=== PATIENT | female | born 1995 | race Hispanic/Latino ===

== ENCOUNTER 2017-10-23 21:36 | Emergency (ER) | payer OTHER, SELFPAY ==
[2017-10-23] MEDS ORDERED: ACETAMINOPHEN 500 MG TAB ONE (23:02)
[2017-10-24] MEDS ORDERED: MAGNE/ALUM HYDROXD 30 ML UCUP ONE (00:15)
[2017-10-24] MEDS ORDERED: LIDOCAINE VISCOUS 2% SOLN 15 ML UDC ONE (00:15)
--- NOTE | 2017-10-24 00:21 | ER ---
Nurse's Notes [facility] Name: Parris Del Rio Age: 22 yrs Sex: Female : 1995 Arrival Date: 10/23/2017 Time: 21:38 Bed 27 Private MD: Diagnosis: Gastritis, unspecified;Anxiety disorder, unspecified Presentation: 10/23 21:38 Presenting complaint: Patient states: She dyed her hair an hour ago, and the fumes aj1 started to get to her and make her feel short of breath. She takes Ativan for anxiety, but didn't have any with her, so her sister gave her some alprazolam, but it didn't help. She began vomiting shortly after that, and began to have chest pain so she became concerned that she was having an allergic reation to the hair dye. Patient denies rash, itching. Transition of care: patient was not received from another setting of care. Onset of symptoms was October 23, 2017 at 20:30. Risk Assessment: Do you want to hurt yourself or someone else? Patient reports no desire to harm self or others. Initial Sepsis Screen: Does the patient meet any 2 criteria? HR > 90 bpm. No. Patient's initial sepsis screen is negative. Does the patient have a suspected source of infection? No. Patient's initial sepsis screen is negative. Care prior to arrival: None. 21:38 Method Of Arrival: Ambulatory aj1 21:38 Acuity: JOY 3 aj1 Triage Assessment: 21:41 General: Appears uncomfortable, Behavior is anxious, restless. Pain: Complains of pain aj1 in mid-sternal area Pain does not radiate. Pain currently is 8 out of 10 on a pain scale. Quality of pain is described as pressure. Neuro: Level of Consciousness is awake, alert, obeys commands, Speech is normal. Cardiovascular: Reports chest pain, Patient's skin is warm and dry. Respiratory: Airway is patent Respiratory effort is even, unlabored, Respiratory pattern is symmetrical, hyperventilation Patient coached with deep breathing techniques. 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 - Social history:: Smoking status: Patient uses tobacco products, smokes one-half pack cigarettes per day. - Ebola Screening: : Patient denies travel to an Ebola-affected area in the 21 days before illness onset. Screenin:50 Abuse screen: Denies threats or abuse. Nutritional screening: No deficits noted. tl3 Tuberculosis screening: No symptoms or risk factors identified. Fall Risk None identified. Assessment: 21:50 General: Appears distressed, uncomfortable, well groomed, well developed, well tl3 nourished, Behavior is cooperative, appropriate for age, anxious. Pain: Complains of pain in chest and mid-sternal area. Neuro: Level of Consciousness is awake, alert, obeys commands, Oriented to person, place, time, situation, Appropriate for age. Cardiovascular: Heart tones S1 S2 present Patient's skin is warm and dry. Respiratory: Airway is patent Respiratory effort is even, unlabored, Respiratory pattern is regular, symmetrical. Respiratory: Reports shortness of breath since dying her hair this evening, fumes were strong, pt suffers with anxiety and had an attack earlier today. GI: No signs and/or symptoms were reported involving the gastrointestinal system. : No signs and/or symptoms were reported regarding the genitourinary system. EENT: No signs and/or symptoms were reported regarding the EENT system. Derm: No signs and/or symptoms reported regarding the dermatologic system. Musculoskeletal: No signs and/or symptoms reported regarding the musculoskeletal system. 22:56 Reassessment: Patient appears in no apparent distress at this time. No changes from tl3 previously documented assessment. Patient and/or family updated on plan of care and expected duration. Pain level reassessed. Patient is alert, oriented x 3, equal unlabored respirations, skin warm/dry/pink. pt reports headache, provider notified, orders recieved. 23:50 Reassessment: Patient appears in no apparent distress at this time. No changes from tl3 previously documented assessment. Patient and/or family updated on plan of care and expected duration. Pain level reassessed. Patient is alert, oriented x 3, equal unlabored respirations, skin warm/dry/pink. 10/24 00:25 Reassessment: Patient appears in no apparent distress at this time. No changes from tl3 previously documented assessment. Patient and/or family updated on plan of care and expected duration. Pain level reassessed. Patient is alert, oriented x 3, equal unlabored respirations, skin warm/dry/pink. Patient states feeling better. Vital Signs: 10/23 21:41 BP 146 / 101; Pulse 99; Resp 24; Temp 98.0(O); Pulse Ox 100% on R/A; Weight 68.04 kg aj1 (R); Height 5 ft. 3 in. (160.02 cm) (R); Pain 8/10; 22:56 BP 114 / 68; Pulse 90; Resp 18; Pulse Ox 100% on R/A; tl3 23:50 BP 106 / 85; Pulse 83; Resp 18; Pulse Ox 100% ; tl3 10/24 00:25 BP 108 / 87; Pulse 80; Resp 18; Pulse Ox 99% on R/A; tl3 10/23 21:41 Body Mass Index 26.57 (68.04 kg, 160.02 cm) aj1 ED Course: 10/23 21:38 Patient arrived in ED. aj1 21:41 Triage completed. aj1 21:41 Arm band placed on Patient placed in an exam room. aj1 21:43 Brenda Nicholson, NANCI is Primary Nurse. tl3 21:45 Craig Ellison PA is PHCP. jr8 21:45 Quintin Reyes MD is Attending Physician. jr8 21:50 Patient has correct armband on for positive identification. Bed in low position. Call tl3 light in reach. Side rails up X2. Pulse ox on. NIBP on. 21:50 No provider procedures requiring assistance completed. Patient did not have IV access tl3 during this emergency room visit. 10/24 00:11 XRAY Chest (1 view) In Process Unspecified. EDMS Administered Medications: 10/23 22:58 Drug: Tylenol 1000 mg Route: PO; tl3 23:49 Follow up: Response: No adverse reaction; Pain is decreased tl3 23:49 Drug: Ativan 1 mg Route: IM; Site: right gluteus; tl3 10/24 00:27 Follow up: Response: No adverse reaction tl3 10/23 23:49 Drug: GI Cocktail without - (Maalox Suspension 30 ml, Lidocaine Liquid 2 % 15 tl3 ml) Route: PO; 10/24 00:26 Follow up: Response: No adverse reaction; Marked relief of symptoms tl3 10/23 23:56 Not Given (Physician Discretion): TORadol 60 mg IM once jr8 Outcome: 10/24 00:21 Discharge ordered by . jr8 00:25 Discharged to home ambulatory. tl3 00:25 Condition: stable 00:25 Discharge instructions given to patient, Instructed on discharge instructions, follow up and referral plans. medication usage, Demonstrated understanding of instructions, follow-up care. 00:43 Patient left the ED. tl3 Signatures: Dispatcher [employer] EDMS Tg Barry RN RN aj1 Craig Ellison PA PA jr8 Brenda Nicholson RN RN tl3
--- NOTE | 2017-10-24 00:22 | EDPHYS ---
Physician Documentation [facility] Name: Parris Del Rio Age: 22 yrs Sex: Female : 1995 Arrival Date: 10/23/2017 Time: 21:38 Bed 27 Private MD: ED Physician Quintin Reyes HPI: 10/23 23:19 This 22 yrs old Female presents to ER via Ambulatory with complaints of jr8 anxiety/chest pain. 23:19 The patient or guardian reports chest pain that is located primarily in the substernal jr8 area. The pain does not radiate. Associated signs and symptoms: The patient has no apparent associated signs or symptoms. The chest pain is described as sharp. Duration: The patient or guardian reports a single episode, that is still ongoing. Modifying factors: The symptoms are alleviated by nothing. the symptoms are aggravated by emotionally stressful situations. Severity of pain: At its worst the pain was moderate in the emergency department the pain has improved. The patient has experienced similar episodes in the past, several times. The patient has not recently seen a physician. Stated that she had bad panic attack earlier. Took a xanax from her sister since she did not have her ativan on hand. Stated that it helped with the anxiety but still having chest pain. Stated that she normally gets chest pain with her attacks but that it goes away with the anxiety . 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 - Social history:: Smoking status: Patient uses tobacco products, smokes one-half pack cigarettes per day. - Ebola Screening: : Patient denies travel to an Ebola-affected area in the 21 days before illness onset. ROS: 23:19 Eyes: Negative for injury, pain, redness, and discharge, ENT: Negative for injury, jr8 pain, and discharge, Neck: Negative for injury, pain, and swelling, Respiratory: Negative for shortness of breath, cough, wheezing, and pleuritic chest pain, Abdomen/GI: Negative for abdominal pain, nausea, vomiting, diarrhea, and constipation, Back: Negative for injury and pain, MS/Extremity: Negative for injury and deformity, Skin: Negative for injury, rash, and discoloration, Neuro: Negative for headache, weakness, numbness, tingling, and seizure. 23:19 Cardiovascular: Positive for chest pain, Negative for edema, orthopnea, palpitations, paroxysmal nocturnal dyspnea. 23:19 Psych: Positive for anxiety. Exam: 23:19 Eyes: Pupils equal round and reactive to light, extra-ocular motions intact. Lids and jr8 lashes normal. Conjunctiva and sclera are non-icteric and not injected. Cornea within normal limits. Periorbital areas with no swelling, redness, or edema. ENT: Nares patent. No nasal discharge, no septal abnormalities noted. Tympanic membranes are normal and external auditory canals are clear. Oropharynx with no redness, swelling, or masses, exudates, or evidence of obstruction, uvula midline. Mucous membranes moist. Neck: Trachea midline, no thyromegaly or masses palpated, and no cervical lymphadenopathy. Supple, full range of motion without nuchal rigidity, or vertebral point tenderness. No Meningismus. Chest/axilla: Normal chest wall appearance and motion. Nontender with no deformity. No lesions are appreciated. Cardiovascular: Regular rate and rhythm with a normal S1 and S2. No gallops, murmurs, or rubs. Normal PMI, no JVD. No pulse deficits. Respiratory: Lungs have equal breath sounds bilaterally, clear to auscultation and percussion. No rales, rhonchi or wheezes noted. No increased work of breathing, no retractions or nasal flaring. Abdomen/GI: Soft, non-tender, with normal bowel sounds. No distension or tympany. No guarding or rebound. No evidence of tenderness throughout. Back: No spinal tenderness. No costovertebral tenderness. Full range of motion. Skin: Warm, dry with normal turgor. Normal color with no rashes, no lesions, and no evidence of cellulitis. MS/ Extremity: Pulses equal, no cyanosis. Neurovascular intact. Full, normal range of motion. Neuro: Awake and alert, GCS 15, oriented to person, place, time, and situation. Cranial nerves II-XII grossly intact. Motor strength 5/5 in all extremities. Sensory grossly intact. Cerebellar exam normal. Normal gait. Psych: Awake, alert, with orientation to person, place and time. Behavior, mood, and affect are within normal limits. Vital Signs: 21:41 BP 146 / 101; Pulse 99; Resp 24; Temp 98.0(O); Pulse Ox 100% on R/A; Weight 68.04 kg aj1 (R); Height 5 ft. 3 in. (160.02 cm) (R); Pain 8/10; 22:56 BP 114 / 68; Pulse 90; Resp 18; Pulse Ox 100% on R/A; tl3 23:50 BP 106 / 85; Pulse 83; Resp 18; Pulse Ox 100% ; tl3 10/24 00:25 BP 108 / 87; Pulse 80; Resp 18; Pulse Ox 99% on R/A; tl3 10/23 21:41 Body Mass Index 26.57 (68.04 kg, 160.02 cm) aj1 MDM: 10/23 21:46 Patient medically screened. 8 10/24 00:20 Data reviewed: vital signs, nurses notes, lab test result(s), EKG, radiologic studies, 8 plain films, and as a result, I will discharge patient. Data interpreted: Pulse oximetry: on room air is 100 %. Interpretation: normal. Counseling: I had a detailed discussion with the patient and/or guardian regarding: the historical points, exam findings, and any diagnostic results supporting the discharge/admit diagnosis, lab results, radiology results, the need for outpatient follow up, a family practitioner, to return to the emergency department if symptoms worsen or persist or if there are any questions or concerns that arise at home. Response to treatment: the patient's symptoms have resolved after treatment. 10/23 23:18 Order name: XRAY Chest (1 view) [facility] 10/23 23:18 Order name: EKG - Nurse/Tech; Complete Time: 23:30 [facility] Administered Medications: 10/23 22:58 Drug: Tylenol 1000 mg Route: PO; tl3 23:49 Follow up: Response: No adverse reaction; Pain is decreased tl3 23:49 Drug: Ativan 1 mg Route: IM; Site: right gluteus; tl3 10/24 00:27 Follow up: Response: No adverse reaction 3 10/23 23:49 Drug: GI Cocktail without - (Maalox Suspension 30 ml, Lidocaine Liquid 2 % 15 tl3 ml) Route: PO; 10/24 00:26 Follow up: Response: No adverse reaction; Marked relief of symptoms tl3 10/23 23:56 Not Given (Physician Discretion): TORadol 60 mg IM once jr8 Disposition: 10/24 06:50 Co-signature as Attending Physician, Quintin Reyes MD I agree with the assessment and wali plan of care. Disposition: 10/24/17 00:21 Discharged to Home. Impression: Gastritis, unspecified, Anxiety disorder, unspecified. - Condition is Stable. - Discharge Instructions: Panic Attacks, Gastritis, Adult. - Medication Reconciliation Form, Thank You Letter, Antibiotic Education, Prescription Opioid Use form. - Follow up: Private Physician; When: 2 - 3 days; Reason: Recheck today's complaints, Continuance of care, Re-evaluation by your physician. - Problem is new. - Symptoms have improved. Signatures: Dispatcher [employer] EDMS Tg Barry RN RN aj1 Quintin Reyes MD MD cha Roszak, Josh, PA PA jr8 Brenda Nicholson RN RN tl3 Corrections: (The following items were deleted from the chart) 00:43 00:21 10/24/2017 00:21 Discharged to Home. Impression: Gastritis, unspecified; Anxiety tl3 disorder, unspecified. Condition is Stable. Forms are Medication Reconciliation Form, Thank You Letter, Antibiotic Education, Prescription Opioid Use. Follow up: Private Physician; When: 2 - 3 days; Reason: Recheck today's complaints, Continuance of care, Re-evaluation by your physician. Problem is new. Symptoms have improved. jr8
[2017-10-24] MEDS ORDERED: LORazepam 2 MG/ML VIAL ONE (00:37)
[2017-10-24 01:06] VITALS: TEMP 98
[2017-10-24 01:11] VITALS: BP 108/87; O2SAT 99
--- NOTE | 2017-10-24 07:52 | RAD REPORT ---
EXAM DESCRIPTION: Dylan Single View10/24/2017 12:12 am CLINICAL HISTORY: Shortness of breath COMPARISON: none FINDINGS: The lungs appear clear of acute infiltrate. The heart is normal size IMPRESSION: No acute abnormalities displayed
--- NOTE | 2017-10-24 11:06 | EKG ---
Test Date: 2017-10-23 Test Time: 23:38:18 [employer] Mdm Developer: TL MEASUREMENT RESULTS: Intervals: Rate: 73 VT: 162 QRSD: 88 QT: 410 QTc: 451 [place]: P: 43 VT: 162 QRS: 53 T: 48 INTERPRETIVE STATEMENTS: Normal sinus rhythm with sinus arrhythmia Normal ECG No previous ECG available for comparison Electronically Signed On 10-24-17 11:03:46 CDT by Silvestre Monroe
== END 2017-10-24 00:43 | disposition home or self-care (01) ==
LOC: ER 21:36
DX: K21.9 Gastro-esophageal reflux disease without esophagitis (principal); F41.9 Anxiety disorder, unspecified; F17.210 Nicotine dependence, cigarettes, uncomplicated
CPT/HCPCS: 71045; 93005; 96372; 99284

== ENCOUNTER 2017-10-26 21:10 | Emergency (ER) | payer SELFPAY ==
[2017-10-26 21:58] LABS: Absolute Lymphocytes (CBC) 2.5 K/uL (0.7-4.9); Absolute Monocytes 0.5 K/uL (0.1-1.3); Absolute Neutrophil 8.5 K/uL (1.8-8.0); Basophils % 0.4 % (0-1.3); Eosinophils % 1.1 % (0-4.4); Hematocrit 41.6 % (36.0-45.0); Lymphocytes % 21.3 % (15.3-44.8); MCV 85.5 fL (80-100); MPV 9.4 fL (7.6-11.3); RBC Red Blood Cell Count 4.86 M/uL (3.86-4.86)
[2017-10-26 22:16] LABS: BUN Blood Urea Nitrogen 18 mg/dL (7-18); Bicarbonate 23 mmol/L (21-32); Glucose Level 93 mg/dL (74-106); Potassium 3.3 mmol/L (3.5-5.1); Sodium Level 138 mmol/L (136-145); Troponin (Emerg Dept Use Only) < 0.02 ng/mL (0.0-0.045)
[2017-10-26] MEDS ORDERED: ONDANSETRON 4 MG/2 ML VIAL ONE (22:31)
[2017-10-26] MEDS ORDERED: KETOROLAC 30 MG/ML INJ ONE (22:31)
--- NOTE | 2017-10-26 23:06 | EDPHYS ---
Physician Documentation [facility] Name: Parris Del Rio Age: 22 yrs Sex: Female : 1995 Arrival Date: 10/26/2017 Time: 21:11 Bed 17 Private MD: ED Physician Jr Poole HPI: 10/26 23:02 This 22 yrs old Female presents to ER via Ambulatory with complaints of Chest gs Pain. 23:02 The patient or guardian reports chest pain that is located primarily in the anterior gs chest wall, bilaterally. The pain does not radiate. Associated signs and symptoms: Pertinent positives: shortness of breath. The chest pain is described as sharp. Duration: The patient or guardian reports multiple episodes, that are intermittent, that wax and wane, with no pattern. Modifying factors: The symptoms are alleviated by nothing. the symptoms are aggravated by nothing. Severity of pain: At its worst the pain was moderate in the emergency department the pain has improved mildly. The patient has experienced similar episodes in the past, a few times. 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 - Social history:: Smoking status: Patient/guardian denies using tobacco. - Ebola Screening: : Patient negative for fever greater than or equal to 101.5 degrees Fahrenheit, and additional compatible Ebola Virus Disease symptoms Patient denies exposure to infectious person Patient denies travel to an Ebola-affected area in the 21 days before illness onset No symptoms or risks identified at this time. ROS: 23:02 All other systems are negative. gs Exam: 23:02 Head/Face: Normocephalic, atraumatic. Eyes: Pupils equal round and reactive to light, gs extra-ocular motions intact. Lids and lashes normal. Conjunctiva and sclera are non-icteric and not injected. Cornea within normal limits. Periorbital areas with no swelling, redness, or edema. ENT: Nares patent. No nasal discharge, no septal abnormalities noted. Tympanic membranes are normal and external auditory canals are clear. Oropharynx with no redness, swelling, or masses, exudates, or evidence of obstruction, uvula midline. Mucous membranes moist. Neck: Trachea midline, no thyromegaly or masses palpated, and no cervical lymphadenopathy. Supple, full range of motion without nuchal rigidity, or vertebral point tenderness. No Meningismus. Chest/axilla: Normal chest wall appearance and motion. Nontender with no deformity. No lesions are appreciated. Respiratory: Lungs have equal breath sounds bilaterally, clear to auscultation and percussion. No rales, rhonchi or wheezes noted. No increased work of breathing, no retractions or nasal flaring. Abdomen/GI: Soft, non-tender, with normal bowel sounds. No distension or tympany. No guarding or rebound. No evidence of tenderness throughout. 23:02 Back: No spinal tenderness. No costovertebral tenderness. Full range of motion. Skin: Warm, dry with normal turgor. Normal color with no rashes, no lesions, and no evidence of cellulitis. MS/ Extremity: Pulses equal, no cyanosis. Neurovascular intact. Full, normal range of motion. Neuro: Awake and alert, GCS 15, oriented to person, place, time, and situation. Cranial nerves II-XII grossly intact. Motor strength 5/5 in all extremities. Sensory grossly intact. Cerebellar exam normal. Normal gait. 23:02 Constitutional: The patient appears alert, awake. 23:02 Constitutional: The patient appears anxious. 23:02 Cardiovascular: Rate: tachycardic, Rhythm: regular, Pulses: no pulse deficits are appreciated, Heart sounds: normal. 23:02 ECG was reviewed by the Attending Physician. Vital Signs: 21:17 BP 128 / 88; Pulse 121; Resp 24; Temp 98.0; Pulse Ox 100% on R/A; Weight 68.04 kg; aj Height 5 ft. 3 in. (160.02 cm); 21:37 BP 122 / 71; Pulse 95; Resp 22; Pulse Ox 100% on R/A; tl2 22:29 BP 106 / 74; Pulse 85; Resp 18; Pulse Ox 98% on R/A; tl2 23:35 BP 111 / 82; Pulse 72; Resp 18; Pulse Ox 99% on R/A; Pain 0/10; tl2 21:17 Body Mass Index 26.57 (68.04 kg, 160.02 cm) aj MDM: 21:53 Patient medically screened. 23:02 Differential diagnosis: acute myocardial infarction, pleurisy, pneumonia, pulmonary gs embolus. Data reviewed: vital signs, nurses notes. Response to treatment: the patient's symptoms have markedly improved after treatment, and as a result, I will discharge patient. 10/26 21:35 Order name: Basic Metabolic Panel; Complete Time: 22:22 10/26 21:35 Order name: CBC with Diff; Complete Time: 22:22 10/26 21:35 Order name: Troponin (emerg Dept Use Only); Complete Time: 22:22 10/26 21:35 Order name: XRAY Chest (1 view) 10/26 21:35 Order name: D-Dimer; Complete Time: 22:22 10/26 21:35 Order name: EKG; Complete Time: 21:35 10/26 21:35 Order name: Cardiac monitoring; Complete Time: 21:36 10/26 21:35 Order name: EKG - Nurse/Tech; Complete Time: 21:36 10/26 21:35 Order name: IV Saline Lock; Complete Time: 21:57 10/26 21:35 Order name: Labs collected and sent; Complete Time: 21:57 10/26 21:35 Order name: O2 Per Protocol; Complete Time: 21:37 10/26 21:35 Order name: O2 Sat Monitoring; Complete Time: 21:37 gs EC:02 Rate is 100 beats/min. Rhythm is regular. OH interval is normal. QRS interval is gs normal. QT interval is normal. T waves are Normal. No ST changes noted. Clinical impression: Abnormal EKG without significant change. Interpreted by me. Administered Medications: 22:28 Drug: TORadol 30 mg Route: IVP; Site: right antecubital; tl2 23:36 Follow up: Response: No adverse reaction; Pain is decreased tl2 22:29 Drug: Zofran 4 mg Route: IVP; Site: right antecubital; tl2 23:36 Follow up: Response: No adverse reaction; Nausea is decreased tl2 Disposition: 10/26/17 23:05 Discharged to Home. Impression: Chest pain, unspecified, Pleurodynia. - Condition is Stable. - Discharge Instructions: Nonspecific Chest Pain. - Prescriptions for Prednisone 20 mg Oral Tablet - take 1 tablet by ORAL route once daily for 5 days; 5 tablet. - Medication Reconciliation Form, Thank You Letter, Antibiotic Education, Prescription Opioid Use form. - Follow up: Private Physician; When: 2 - 3 days; Reason: Re-evaluation by your physician. Signatures: Dispatcher [employer] Loree Guerra RN RN Glenys Baltazar RN RN tl2 Jr Poole MD MD gs Corrections: (The following items were deleted from the chart) 23:37 23:05 10/26/2017 23:05 Discharged to Home. Impression: Chest pain, unspecified; tl2 Pleurodynia. Condition is Stable. Forms are Medication Reconciliation Form, Thank You Letter, Antibiotic Education, Prescription Opioid Use. Follow up: Private Physician; When: 2 - 3 days; Reason: Re-evaluation by your physician. gs
--- NOTE | 2017-10-26 23:06 | ER ---
Nurse's Notes [facility] Name: Parris Del Rio Age: 22 yrs Sex: Female : 1995 Arrival Date: 10/26/2017 Time: 21:11 Bed 17 Private MD: Diagnosis: Chest pain, unspecified;Pleurodynia Presentation: 10/26 21:15 Presenting complaint: Patient states: Chest pain for 4 days. Seen by physician for same aj complaint and DX with Anxiety. Reports symptoms do not resolve with Lorazepam. Patient is hyperventilating in triage and crying. Appears very anxious. Transition of care: patient was not received from another setting of care. Onset of symptoms was October 22, 2017. Risk Assessment: Do you want to hurt yourself or someone else? Patient reports no desire to harm self or others. Initial Sepsis Screen: Does the patient meet any 2 criteria? No. Patient's initial sepsis screen is negative. Does the patient have a suspected source of infection? No. Patient's initial sepsis screen is negative. Care prior to arrival: None. 21:15 Method Of Arrival: Ambulatory 21:15 Acuity: JOY 3 aj Triage Assessment: 21:17 General: Appears in no apparent distress. uncomfortable, Behavior is anxious, crying. aj Pain: Complains of pain in anterior aspect of right upper chest, anterior aspect of left upper chest, right breast and left breast. Neuro: Level of Consciousness is awake, alert, obeys commands, Oriented to person, place, time, situation, Appropriate for age. Cardiovascular: Capillary refill < 3 seconds in bilateral fingers Patient's skin is warm and dry. Respiratory: Airway is patent Respiratory effort is even, unlabored, Respiratory pattern is symmetrical, hyperventilation. Derm: Skin is intact, is healthy with good turgor, Skin is pink, warm \T\ dry. normal. 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 - Social history:: Smoking status: Patient/guardian denies using tobacco. - Ebola Screening: : Patient negative for fever greater than or equal to 101.5 degrees Fahrenheit, and additional compatible Ebola Virus Disease symptoms Patient denies exposure to infectious person Patient denies travel to an Ebola-affected area in the 21 days before illness onset No symptoms or risks identified at this time. Screenin:37 Abuse screen: Denies threats or abuse. Nutritional screening: No deficits noted. tl2 Tuberculosis screening: No symptoms or risk factors identified. Fall Risk None identified. Assessment: 21:38 General: Appears in no apparent distress. uncomfortable, Behavior is calm, cooperative, tl2 appropriate for age. Pain: Complains of pain in anterior aspect of left upper chest and anterior aspect of right upper chest Pain radiates to neck, jaw Pain began 4 days ago. Neuro: Level of Consciousness is awake, alert, obeys commands, Oriented to person, place, time, situation. Cardiovascular: Chest pain is described as diffuse, quality is sharp, is located in right left anterior radiates jaw(s) neck began 4 days ago episodes are continuous. Respiratory: Airway is patent Respiratory effort is even, unlabored, Respiratory pattern is regular, symmetrical. GI: No signs and/or symptoms were reported involving the gastrointestinal system. Derm: Skin is pink, warm \T\ dry. 22:31 Reassessment: Patient appears in no apparent distress at this time. Patient and/or tl2 family updated on plan of care and expected duration. Pain level reassessed. Patient is alert, oriented x 3, equal unlabored respirations, skin warm/dry/pink. pt c/o nausea, MD notified, see MAR. 23:35 Reassessment: Patient appears in no apparent distress at this time. Patient and/or tl2 family updated on plan of care and expected duration. Pain level reassessed. Patient is alert, oriented x 3, equal unlabored respirations, skin warm/dry/pink. Pt verbalized understanding of discharge instructions, need for follow up and prescription usage Patient states feeling better. Patient states symptoms have improved. Vital Signs: 21:17 BP 128 / 88; Pulse 121; Resp 24; Temp 98.0; Pulse Ox 100% on R/A; Weight 68.04 kg; aj Height 5 ft. 3 in. (160.02 cm); 21:37 BP 122 / 71; Pulse 95; Resp 22; Pulse Ox 100% on R/A; tl2 22:29 BP 106 / 74; Pulse 85; Resp 18; Pulse Ox 98% on R/A; tl2 23:35 BP 111 / 82; Pulse 72; Resp 18; Pulse Ox 99% on R/A; Pain 0/10; tl2 21:17 Body Mass Index 26.57 (68.04 kg, 160.02 cm) ED Course: 21:11 Patient arrived in ED. ds1 21:17 Triage completed. aj 21:17 Arm band placed on right wrist. Patient placed in an exam room. aj 21:31 Jr Poole MD is Attending Physician. gs 21:37 Patient has correct armband on for positive identification. Placed in gown. Bed in low tl2 position. Call light in reach. Side rails up X 1. cook barbecue on. Pulse ox on. NIBP on. 21:37 Patient maintains SpO2 saturation greater than 95% on room air. tl2 21:57 Inserted saline lock: 22 gauge in right antecubital area, using aseptic technique. tl2 Blood collected. 22:51 XRAY Chest (1 view) In Process Unspecified. EDMS 23:35 No provider procedures requiring assistance completed. IV discontinued, intact, tl2 bleeding controlled, No redness/swelling at site. Pressure dressing applied. Administered Medications: 22:28 Drug: TORadol 30 mg Route: IVP; Site: right antecubital; tl2 23:36 Follow up: Response: No adverse reaction; Pain is decreased tl2 22:29 Drug: Zofran 4 mg Route: IVP; Site: right antecubital; tl2 23:36 Follow up: Response: No adverse reaction; Nausea is decreased tl2 Outcome: 23:05 Discharge ordered by . gs 23:35 Discharged to home ambulatory. tl2 23:35 Condition: stable 23:35 Discharge instructions given to patient, Instructed on discharge instructions, follow up and referral plans. medication usage, Demonstrated understanding of instructions, follow-up care, medications, Prescriptions given X 1. 23:37 Patient left the ED. tl2 Signatures: Dispatcher [employer] EDMS Loree Moreau RN RN aj Sanford, Demi ds1 Glenys Potter RN RN tl2 Jr Poole MD MD gs Corrections: (The following items were deleted from the chart) 22:33 22:29 BP 106 / 74; Pulse 108bpm; Resp 18bpm; Pulse Ox 98% RA; tl2 tl2
[2017-10-26 23:44] VITALS: TEMP 98
[2017-10-26 23:48] VITALS: BP 111/82; O2SAT 99
--- NOTE | 2017-10-27 08:19 | RAD REPORT ---
EXAM DESCRIPTION: RAD - Chest Single View - 10/26/2017 10:51 pm CLINICAL HISTORY: Chest pain COMPARISON: October 23 TECHNIQUE: AP portable chest image was obtained 2239 hours . FINDINGS: Lungs are clear. Heart and vasculature are normal. No measurable pleural effusion and no p neumothorax. No gross bony abnormality seen. No acute aortic findings suspected. IMPRESSION: No acute cardiopulmonary process. No significant change from comparison.
--- NOTE | 2017-10-28 06:54 | EKG ---
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
== END 2017-10-26 23:37 | disposition home or self-care (01) ==
LOC: ER 21:10
DX: R07.81 Pleurodynia (principal); F41.9 Anxiety disorder, unspecified
CPT/HCPCS: 36415; 71045; 80048; 84484; 85025; 85379; 93005; 96374; 96375; 99285; J2405

== ENCOUNTER 2017-11-08 21:29 | Emergency (ER) | payer SELFPAY ==
--- NOTE | 2017-11-08 22:08 | RAD REPORT ---
EXAM DESCRIPTION: CT - Head Brain Wo Cont - 11/08/2017 10:01 pm CLINICAL HISTORY: paresthesia of left side face and left arm Drowsiness COMPARISON: No comparisons TECHNIQUE: All CT scans are performed using dose optimization technique as appropriate and may inclu de automated exposure control or mA/KV adjustment according to patient size. FINDINGS: No intracranial hemorrhage, hydrocephalus or extra-axial fluid collection.No areas of brai n edema or evidence of midline shift. The paranasal sinuses and mastoids are clear. The calvarium is intact. IMPRESSION: No acute intracranial abnormality.
[2017-11-08] MEDS ORDERED: NA CHLORIDE 0.9% 1,000 ML ONE (22:13)
[2017-11-08 22:15] LABS: Absolute Lymphocytes (CBC) 2.6 K/uL (0.7-4.9); Absolute Monocytes 0.5 K/uL (0.1-1.3); Absolute Neutrophil 8.1 K/uL (1.8-8.0); Basophils % 0.4 % (0-1.3); Eosinophils % 1.8 % (0-4.4); Lymphocytes % 22.6 % (15.3-44.8); MCH 28.7 pg (27.0-35.0); MCV 85.9 fL (80-100); MPV 9.8 fL (7.6-11.3); Monocytes % 4.8 % (3.3-12.3); RBC Red Blood Cell Count 5.12 M/uL (3.86-4.86)
[2017-11-08 22:21] LABS: Protime INR 1.05
[2017-11-08 22:22] LABS: ALT/SGPT 17 U/L (12-78); AST/SGOT 11 U/L (15-37); Albumin 4.1 g/dL (3.4-5.0); Alkaline Phosphatase 61 U/L (45-117); BUN Blood Urea Nitrogen 20 mg/dL (7-18); Bicarbonate 23 mmol/L (21-32); Bilirubin Direct < 0.1 mg/dL (0-0.2); Bilirubin Total 0.3 mg/dL (0.2-1.0); Glucose Level 111 mg/dL (74-106); Magnesium 2.1 mg/dL (1.8-2.4); NT PRO-BNP 15 pg/mL (<125); Potassium 3.4 mmol/L (3.5-5.1); Protein, Total 7.8 g/dL (6.4-8.2); Sodium Level 141 mmol/L (136-145); Troponin (Emerg Dept Use Only) < 0.02 ng/mL (0.0-0.045)
[2017-11-08 23:22] LABS: Barbiturates NEGATIVE (NEGATIVE); Benzodiazepines NEGATIVE (NEGATIVE); Cocaine NEGATIVE (NEGATIVE); METHAMPHETAM NEGATIVE (NEGATIVE); Methadone NEGATIVE (NEGATIVE); Opiates NEGATIVE (NEGATIVE); Phencyclidine NEGATIVE (NEGATIVE); THC Cannibis NEGATIVE (NEGATIVE)
[2017-11-08] MEDS ORDERED: KETOROLAC 30 MG/ML INJ ONE (23:26)
[2017-11-08] MEDS ORDERED: POTASSIUM 25 MEQ EFFERV TAB ONE (23:27)
[2017-11-08 23:46] LABS: Urine Blood TRACE (NEG); Urine Glucose NEGATIVE (NEG); Urine Protein NEGATIVE (NEG); Urine Specific Gravity 1.015 (1.005-1.030); Urine pH 6.5 (5.0-7.0)
--- NOTE | 2017-11-09 00:36 | ER ---
Nurse's Notes [facility] Name: Parris Del Rio Age: 22 yrs Sex: Female : 1995 Arrival Date: 11/08/2017 Time: 21:30 Bed 20 Private MD: Diagnosis: Other chest pain;Paresthesia of skin Presentation: 11/08 21:36 Presenting complaint: Patient states: C/O left chest pain, Left face and arm numbness aj that started at 2100 today. Patient is crying in triage, appears anxious. Face is symmetrical. Transition of care: patient was not received from another setting of care. Onset of symptoms was November 08, 2017. Risk Assessment: Do you want to hurt yourself or someone else? Patient reports no desire to harm self or others. Initial Sepsis Screen: Does the patient meet any 2 criteria? No. Patient's initial sepsis screen is negative. Does the patient have a suspected source of infection? No. Patient's initial sepsis screen is negative. Care prior to arrival: None. 21:36 Method Of Arrival: Ambulatory aj 21:36 Acuity: JOY 2 aj 21:38 No acute neurological deficit is noted. Pre-hospital glucose is not applicable to this aj patient. Triage Assessment: 21:38 The onset of the patients symptoms was November 08, 2017 at 21:00. General: Appears in aj no apparent distress. uncomfortable, Behavior is anxious, crying. Pain: Complains of pain in anterior aspect of left upper chest and left breast. 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 Full function Gait is steady, Speech is normal, Facial symmetry appears normal, Pupils are PERRLA, Numbness in left side of forehead, left temporal area, left eye, left anabaptism, left ear, left side of the nose, left zygomatic area, left cheek, left mandible and left arm Reports numbness in left side of forehead, left temporal area, left eye, left anabaptism, left ear, left side of the nose, left zygomatic area and left cheek. Cardiovascular: Reports chest pain. Respiratory: Airway is patent Respiratory effort is even, unlabored, Respiratory pattern is regular, symmetrical. Derm: Skin is intact, is healthy with good turgor, Skin is pink, warm \T\ dry. normal. 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 - Social history:: Smoking status: Patient/guardian denies using tobacco. - Ebola Screening: : Patient negative for fever greater than or equal to 101.5 degrees Fahrenheit, and additional compatible Ebola Virus Disease symptoms Patient denies exposure to infectious person Patient denies travel to an Ebola-affected area in the 21 days before illness onset No symptoms or risks identified at this time. Screenin:50 Abuse screen: Denies threats or abuse. Denies injuries from another. Nutritional cc3 screening: No deficits noted. Tuberculosis screening: No symptoms or risk factors identified. Fall Risk Ambulatory Aid- None/Bed Rest/Nurse Assist (0 pts). Gait- Normal/Bed Rest/Wheelchair (0 pts) Mental Status- Oriented to own ability (0 pts). Assessment: 21:40 General: see triage assessment. cc3 21:40 Pain: Pain radiates to left arm Pain began at 2100H. cc3 21:55 Reassessment:. Reassessment: Patient taken by electrocardiograph technician for CT scan of head cc3 brain procedure. 22:15 Reassessment: Patient came back from CT scan department, CT scan of head brain cc3 procedure done. 23:30 Reassessment: Patient appears in no apparent distress at this time. Patient and/or cc3 family updated on plan of care and expected duration. Pain level reassessed. Patient is alert, oriented x 3, equal unlabored respirations, skin warm/dry/pink. 11/09 00:50 Reassessment: Patient appears in no apparent distress at this time. Patient and/or cc3 family updated on plan of care and expected duration. Pain level reassessed. Patient is alert, oriented x 3, equal unlabored respirations, skin warm/dry/pink. MIKE Chapa discharged the patient home with prescription given. IV cannula removed and patient left ER vitally stable and ambulatory. Vital Signs: 11/08 21:38 BP 135 / 98; Pulse 128; Resp 18; Temp 97.9; Pulse Ox 100% on R/A; Weight 68.04 kg; aj Height 5 ft. 3 in. (160.02 cm); 23:25 BP 102 / 78; Pulse 97; Resp 18; Pulse Ox 100% ; ea 11/09 00:00 BP 111 / 59; Pulse 102; Resp 19 S; Pulse Ox 100% on R/A; cc3 00:30 BP 108 / 67; Pulse 98; Resp 19 S; Pulse Ox 100% on R/A; cc3 11/08 21:38 Body Mass Index 26.57 (68.04 kg, 160.02 cm) aj ED Course: 11/08 21:30 Patient arrived in ED. ds1 21:36 Quintin Chapa PA is PHCP. cp 21:36 Quintin Reyes MD is Attending Physician. cp 21:36 Brennan Banks, RN is Primary Nurse. bp 21:38 Triage completed. aj 21:38 Arm band placed on left wrist. Patient placed in an exam room. EKG completed in triage. aj Results shown to MD. 21:50 Patient has correct armband on for positive identification. Placed in gown. Bed in low cc3 position. Call light in reach. Side rails up X 1. 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 Pulse ox on. NIBP on. 21:50 Inserted saline lock: 20 gauge in right antecubital area, using aseptic technique. cc3 Blood collected. 22:01 CT completed. Patient tolerated procedure well. Patient moved back from CT. nj 22:01 CT Head Brain wo Cont In Process Unspecified. EDMS 22:04 XRAY Chest (1 view) In Process Unspecified. EDMS 11/09 00:50 No provider procedures requiring assistance completed. IV discontinued, intact, cc3 bleeding controlled, No redness/swelling at site. Pressure dressing applied. Patient maintains SpO2 saturation greater than 95% on room air. 00:51 Brennan Banks, RN is Primary Nurse. bp Administered Medications: 11/08 22:10 Drug: NS 0.9% 1000 ml Route: IV; Rate: 1 bolus; Site: right antecubital; cc3 23:15 Follow up: Response: No adverse reaction; IV Status: Completed infusion; IV Intake: cc3 1000ml 23:25 Drug: TORadol 30 mg Route: IVP; Site: right antecubital; ea 23:45 Follow up: Response: No adverse reaction cc3 23:25 Drug: Potassium Effervescent Tablet 25 mEq Route: PO; ea 23:30 Follow up: Response: No adverse reaction cc3 Intake: 23:15 IV: 1000ml; Total: 1000ml. cc3 Outcome: 11/09 00:35 Discharge ordered by . cp 00:50 Discharged to home ambulatory. cc3 00:50 Condition: stable 00:50 Discharge instructions given to patient, Instructed on discharge instructions, follow up and referral plans. medication usage, Demonstrated understanding of instructions, follow-up care, medications, Prescriptions given X 1. 01:00 Patient left the ED. cc3 Signatures: Dispatcher [employer] EDMS Loree Moreau RN RN Rhianna Kong ds1 Quintin Chapa PA PA cp Jordan, Nathan nj Antunez, Elena, RN RN Brennan Gomez RN RN Jessica Posada cc3 Corrections: (The following items were deleted from the chart) 11/08 22:05 21:55 Reassessment: Patient taken by electrocardiograph technician for CT scan of brain procedure. cc3 cc3
--- NOTE | 2017-11-09 00:36 | EDPHYS ---
Physician Documentation [facility] Name: Parris Del Rio Age: 22 yrs Sex: Female : 1995 Arrival Date: 11/08/2017 Time: 21:30 Bed 20 Private MD: ED Physician Quintin Reyes HPI: 11/08 21:52 This 22 yrs old Female presents to ER via Ambulatory with complaints of Chest cp Pain. 21:52 The patient or guardian reports chest pain that is located primarily in the anterior cp chest wall, left. 21:52 The pain radiates to the left shoulder. Associated signs and symptoms: Pertinent cp positives: numbness of left side of face and left upper arm. The chest pain is described as sharp. Duration: The patient or guardian reports a single episode, that is still ongoing, and unchanged. 21:52 Patient reports pain and numbness started suddenly tonight at 2100. 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 - Social history:: Smoking status: Patient/guardian denies using tobacco. - Ebola Screening: : Patient negative for fever greater than or equal to 101.5 degrees Fahrenheit, and additional compatible Ebola Virus Disease symptoms Patient denies exposure to infectious person Patient denies travel to an Ebola-affected area in the 21 days before illness onset No symptoms or risks identified at this time. ROS: 22:00 Constitutional: Negative for body aches, chills, fever, poor PO intake. cp 22:00 Eyes: Negative for injury, pain, redness, and discharge. cp 22:00 ENT: Negative for drainage from ear(s), ear pain, sore throat, difficulty swallowing, difficulty handling secretions. 22:00 Cardiovascular: Positive for chest pain, Negative for edema, palpitations. 22:00 Respiratory: Negative for cough, shortness of breath, wheezing. 22:00 Abdomen/GI: Negative for abdominal pain, nausea, vomiting, and diarrhea, black/tarry stool, rectal bleeding. 22:00 Back: Negative for pain at rest, pain with movement, radiated pain. 22:00 : Negative for urinary symptoms. 22:00 MS/extremity: Negative for injury or acute deformity, decreased range of motion, tenderness. 22:00 Skin: Negative for cellulitis, rash. 22:00 Neuro: Positive for numbness, of the left side of face and left upper arm, Negative for altered mental status, dizziness, headache, syncope, near syncope, weakness. 22:00 All other systems are negative. Exam: 21:50 ECG was reviewed by the Attending Physician. cp 22:05 Head/Face: Normocephalic, atraumatic. Eyes: Pupils equal round and reactive to light, cp extra-ocular motions intact. Lids and lashes normal. Conjunctiva and sclera are non-icteric and not injected. Cornea within normal limits. Periorbital areas with no swelling, redness, or edema. ENT: Nares patent. No nasal discharge, no septal abnormalities noted. Tympanic membranes are normal and external auditory canals are clear. Oropharynx with no redness, swelling, or masses, exudates, or evidence of obstruction, uvula midline. Mucous membranes moist. Neck: Trachea midline, no thyromegaly or masses palpated, and no cervical lymphadenopathy. Supple, full range of motion without nuchal rigidity, or vertebral point tenderness. No Meningismus. 22:05 Constitutional: The patient appears in no acute distress, alert, awake, non-diaphoretic, non-toxic, well developed, well nourished, anxious, tearful 22:05 Chest/axilla: Inspection: normal, Palpation: crepitus, is not appreciated, tenderness, that is mild, of the anterior aspect of left upper chest, that partially reproduces the patient's complaints. 22:05 Cardiovascular: Rate: tachycardic, Rhythm: regular, Pulses: Pulses are 2+ in right radial artery and left radial artery. Heart sounds: murmur, not appreciated, rub, not appreciated, gallop, not appreciated, Edema: is not appreciated, JVD: is not appreciated. 22:05 Respiratory: the patient does not display signs of respiratory distress, Respirations: normal, no use of accessory muscles, no retractions, no splinting, no tachypnea, labored breathing, is not present. 22:05 Abdomen/GI: Inspection: abdomen appears normal, Bowel sounds: active, all quadrants, Palpation: abdomen is soft and non-tender, in all quadrants, rebound tenderness, is not appreciated, voluntary guarding, is not appreciated, involuntary guarding, is not appreciated. 22:05 Back: pain, is absent, ROM is normal. 22:05 Musculoskeletal/extremity: Exam is negative for bony tenderness, calf tenderness, decreased range of motion, edema. 22:05 Skin: cellulitis, is not appreciated, no rash present. 22:05 Neuro: Orientation: to person, place \T\ time. Mentation: is normal, Cerebellar function: is grossly normal, Motor: moves all fours, strength is normal, Sensation: no obvious gross deficits. 22:05 Psych: Behavior/mood is cooperative, anxious, Patient has no thoughts/intents to harm self or others. Judgement / Insight is normal. Vital Signs: 21:38 BP 135 / 98; Pulse 128; Resp 18; Temp 97.9; Pulse Ox 100% on R/A; Weight 68.04 kg; aj Height 5 ft. 3 in. (160.02 cm); 23:25 BP 102 / 78; Pulse 97; Resp 18; Pulse Ox 100% ; ea 11/09 00:00 BP 111 / 59; Pulse 102; Resp 19 S; Pulse Ox 100% on R/A; cc3 00:30 BP 108 / 67; Pulse 98; Resp 19 S; Pulse Ox 100% on R/A; cc3 11/08 21:38 Body Mass Index 26.57 (68.04 kg, 160.02 cm) aj MDM: 11/08 21:40 Patient medically screened. cp 22:00 Differential diagnosis: acute pericarditis, anxiety, chest wall pain, costochondritis, cp esophagitis, gastritis, pericarditis, pleurisy, pneumonia, pneumothorax, pulmonary embolus. 11/09 00:30 Data reviewed: vital signs, nurses notes, lab test result(s), EKG, radiologic studies, cp CT scan, plain films, and as a result, I will discharge patient. ED course: VSS. Patient reports chest pain and numbness resolved. 00:30 Special discussion: Based on the patient's history, exam, and Dx evaluation, there is cp no indication for emergent intervention or inpatient Tx. It is understood by the patient/guardian that if the Sx's persist or worsen they need to return immediately for re-evaluation. 11/08 21:42 Order name: Basic Metabolic Panel; Complete Time: 23:13 cp 11/08 23:13 Interpretation: Normal except: K 3.4; GLUC 111; BUN 20. cp 11/08 21:42 Order name: CBC with Diff; Complete Time: 22:20 cp 11/08 21:42 Order name: LFT's; Complete Time: 23:13 11/08 21:42 Order name: Magnesium; Complete Time: 23:13 cp 11/08 21:42 Order name: NT PRO-BNP; Complete Time: 23:13 cp 11/08 21:42 Order name: PT-INR; Complete Time: 23:13 cp 11/08 21:42 Order name: Troponin (emerg Dept Use Only); Complete Time: 23:13 cp 11/08 21:42 Order name: XRAY Chest (1 view) 11/08 21:42 Order name: D-Dimer; Complete Time: 23:13 11/08 21:42 Order name: UDS; Complete Time: 23:46 11/08 23:46 Interpretation: Reviewed. 11/08 21:42 Order name: CT Head Brain wo Cont; Complete Time: 22:20 cp 11/08 23:20 Order name: Urine Dipstick--Ancillary (enter results); Complete Time: 23:50 ms 11/08 23:20 Order name: Urine --Ancillary (enter results); Complete Time: 23:50 ms 11/08 21:42 Order name: EKG; Complete Time: 21:43 cp 11/08 21:42 Order name: Cardiac monitoring; Complete Time: 21:57 cp 11/08 21:42 Order name: EKG - Nurse/Tech; Complete Time: 21:58 cp 11/08 21:42 Order name: IV Saline Lock; Complete Time: 21:58 cp 11/08 21:42 Order name: Labs collected and sent; Complete Time: 21:58 cp 11/08 21:42 Order name: O2 Per Protocol; Complete Time: 21:58 cp 11/08 21:42 Order name: O2 Sat Monitoring; Complete Time: 21:58 cp EC/28 21:50 Rate is 111 beats/min. Rhythm is regular. ID interval is normal. QRS interval is cp normal. QT interval is normal. Interpreted by me. Reviewed by me. Administered Medications: 22:10 Drug: NS 0.9% 1000 ml Route: IV; Rate: 1 bolus; Site: right antecubital; cc3 23:15 Follow up: Response: No adverse reaction; IV Status: Completed infusion; IV Intake: cc3 1000ml 23:25 Drug: TORadol 30 mg Route: IVP; Site: right antecubital; ea 23:45 Follow up: Response: No adverse reaction cc3 23:25 Drug: Potassium Effervescent Tablet 25 mEq Route: PO; ea 23:30 Follow up: Response: No adverse reaction cc3 Disposition: 11/09 06:42 Co-signature as Attending Physician, Quintin Reyes MD I agree with the assessment and [facility] plan of care. Disposition: 11/09/17 00:35 Discharged to Home. Impression: Other chest pain, Paresthesia of skin. - Condition is Stable. - Discharge Instructions: Nonspecific Chest Pain, Paresthesia. - Prescriptions for ketorolac 10 mg Oral tablet - take 1 tablet by ORAL route every 6 hours As needed not to exceed 40 mg in 24hrs; 15 tablet. - Medication Reconciliation Form, Thank You Letter, Antibiotic Education, Prescription Opioid Use form. - Follow up: Private Physician; When: 2 - 3 days; Reason: Recheck today's complaints. - Problem is new. - Symptoms have improved. Signatures: Dispatcher [employer] Loree Guerra, Quintin Stevens RN, MD MD cha Page, Corey, PA PA cp Antunez, Elena, RN RN ea Cordel, Charlene cc3 Corrections: (The following items were deleted from the chart) 01:00 00:35 11/09/2017 00:35 Discharged to Home. Impression: Other chest pain; Paresthesia of cc3 skin. Condition is Stable. Forms are Medication Reconciliation Form, Thank You Letter, Antibiotic Education, Prescription Opioid Use. Follow up: Private Physician; When: 2 - 3 days; Reason: Recheck today's complaints. Problem is new. Symptoms have improved. cp
[2017-11-09 01:42] VITALS: TEMP 97.9; O2SAT 100
[2017-11-09 01:46] VITALS: BP 108/67
--- NOTE | 2017-11-09 08:22 | RAD REPORT ---
EXAM DESCRIPTION: RAD - Chest Single View - 11/08/2017 10:06 pm CLINICAL HISTORY: Left-sided chest pain COMPARISON: October 26 TECHNIQUE: AP portable chest image was obtained 2153 hours . FINDINGS: Lungs are clear. Heart and vasculature are normal. No measurable pleural effusion and no p neumothorax. No gross bony abnormality seen. No acute aortic findings suspected. IMPRESSION: No acute cardiopulmonary process. No new or progressive finding.
--- NOTE | 2017-11-11 06:52 | EKG ---
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
== END 2017-11-09 01:00 | disposition home or self-care (01) ==
LOC: ER 21:29
DX: R20.2 Paresthesia of skin (principal); F41.9 Anxiety disorder, unspecified
CPT/HCPCS: 36415; 70450; 71045; 80048; 80076; 80307; 81003; 81025; 83735; 83880; 84484; 85025; 85379; 85610; 93005; 96361; 96374; 99285; J7030

== ENCOUNTER 2018-05-31 17:09 | Emergency (ER) | payer OTHER ==
--- OUTSIDE RECORDS SUMMARY | 2018-05-31 17:11 | XMS REPORT ---
:1995 Author Organization [employer] Care Team Providers Name Role Phone [facility] Provider Role Unavailable Allergies, Adverse Reactions, Alerts Substance Reaction Event Type N.K.D.A. Info Not Available Non Drug Allergy Problems Problem Type Condition Code Onset Dates Condition Status Assessment Need for influenza vaccination Z23 Active Assessment Routine gynecological examination Z01.419 Active Problem Panic disorder [episodic paroxysmal F41.0 Active anxiety] Problem Generalized anxiety disorder F41.1 Active Assessment Generalized anxiety disorder F41.1 Active Assessment Adult BMI 29.0-29.9 kg/sq m Z68.29 Active Assessment Well adult on routine health check Z00.00 Active Assessment Panic disorder [episodic paroxysmal F41.0 Active anxiety] Medications Medication Code System Code Instructions Start End Date Status Dosage Date Lorazepam [facility] 51859074329 1 MG Orally Once Active 1 tablet at a day bedtime as needed Lexapro [facility] 55355581240 10 MG Orally May 12, Active take 1/2 Once a day 2019 tab qd x 1 week then 1 tab qd Results No Known Results Immunizations Vaccine Administration Date Afluria May 12, 2018 Summary Purpose [employer] Submission
--- OUTSIDE RECORDS SUMMARY | 2018-05-31 17:11 | XMS REPORT ---
:1995 Author Organization [employer] Care Team Providers Name Role Phone Jakub [facility] Provider Role Unavailable Allergies No Known Allergies Problems Problem Type Condition Code Onset Dates Condition Status Problem Panic disorder [episodic paroxysmal F41.0 Active anxiety] Problem Generalized anxiety disorder F41.1 Active Assessment Generalized anxiety disorder F41.1 Active Medications Medication Code Code Instructions Start End Status Dosage System Date Date BusPIRone HCl ND 98691108994 5 MG Orally May Active 1 tablet Twice a day 2018 Lexapro NDC 39948333823 10 MG Orally May Inactive take 1/2 Once a day 2018 tab qd x 1 week then 1 tab qd Results No Known Results Summary Purpose [employer] Submission
[2018-05-31 18:29] LABS: Hematocrit 42.6 % (36.0-45.0); RBC Red Blood Cell Count 4.88 M/uL (3.86-4.86)
[2018-05-31 18:30] LABS: Absolute Lymphocytes (CBC) 2.4 K/uL (0.7-4.9); Absolute Monocytes 0.5 K/uL (0.1-1.3); Absolute Neutrophil 9.9 K/uL (1.8-8.0); Basophils % 0.5 % (0-1.3); Eosinophils % 1.8 % (0-4.4); Lymphocytes % 18.5 % (15.3-44.8); MPV 9.7 fL (7.6-11.3); Monocytes % 3.8 % (3.3-12.3)
[2018-05-31 18:49] LABS: ALT/SGPT 19 U/L (12-78); AST/SGOT 13 U/L (15-37); Albumin 3.9 g/dL (3.4-5.0); Alkaline Phosphatase 60 U/L (45-117); BUN Blood Urea Nitrogen 18 mg/dL (7-18); Bicarbonate 27 mmol/L (21-32); Bilirubin Direct 0.1 mg/dL (0-0.2); Bilirubin Total 0.4 mg/dL (0.2-1.0); Glucose Level 78 mg/dL (74-106); Lipase 69 U/L (73-393); Potassium 3.6 mmol/L (3.5-5.1); Protein, Total 7.8 g/dL (6.4-8.2); Sodium Level 143 mmol/L (136-145)
--- NOTE | 2018-05-31 19:19 | RAD REPORT ---
EXAM DESCRIPTION: CT - Abdomen Pelvis W Contrast - 05/31/2018 7:10 pm CLINICAL HISTORY: Right lower abdominal pain COMPARISON: None. TECHNIQUE: Biphasic, helical CT imaging of the abdomen and pelvis was performed following 100 ml non -ionic IV contrast. Oral contrast was given. All CT scans are performed using dose optimization technique as appropriate and may include automated exposure control or mA/KV adjustment according to patient size. FINDINGS: No suspicious findings in the lung bases. The liver, spleen, and pancreas show no suspicious findings. Gallbladder and biliary tree are also wi thout suspicious finding. Symmetric renal function is seen with no hydronephrosis or suspicious renal mass. No pyelonephritis o r acute parenchymal process. No bladder abnormalities. No adrenal abnormalities. Uterus and ovaries show no suspicious findings. No dilated bowel loops or bowel wall thickening. No appendicitis findings. No free air, free fluid or inflammatory stranding. No hernia, mass or bulky lymphadenopathy. A few scattered sub centimeter me senteric lymph nodes are present. No suspicious bony findings. IMPRESSION: Contrast enhanced CT abdomen and pelvis showing no significant or suspicious finding.
[2018-05-31 20:09] LABS: Urine Blood 1+ (NEG); Urine Glucose NEGATIVE (NEG); Urine Protein NEGATIVE (NEG); Urine Specific Gravity >1.030 (1.005-1.030); Urine pH 5.5 (5.0-7.0)
--- NOTE | 2018-05-31 20:14 | EDPHYS ---
Physician Documentation [facility] Name: Parris Del Rio Age: 23 yrs Sex: Female : 1995 Arrival Date: 05/31/2018 Time: 17:11 Bed 15 Private MD: ED Physician Jim Martinez HPI: 05/31 17:36 This 23 yrs old Female presents to ER via Ambulatory with complaints of jmm Abdominal Pain. 17:36 The patient presents with abdominal pain right lower quadrant. Onset: The jmm symptoms/episode began/occurred gradually, 1 week(s) ago. The symptoms do not radiate. This is a 23 year old female with a history of anxiety that presents to the ED with complaints of of right lower abdominal pain which has been intermittent over the past week. Patient states that she thought it may be a UTI and took amoxicillin with transient relief. Patient states the pain returned today. Denies vomiting or diarrhea. Patient states having a previous history of ovarian cysts. . 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 - Social history:: Smoking status: Patient/guardian denies using tobacco. - Ebola Screening: : Patient denies travel to an Ebola-affected area in the 21 days before illness onset. ROS: 17:36 Constitutional: Negative for fever, chills, and weight loss, Cardiovascular: Negative jmm for chest pain, palpitations, and edema, Respiratory: Negative for shortness of breath, cough, wheezing, and pleuritic chest pain. 17:36 MS/Extremity: Negative for injury and deformity, Skin: Negative for injury, rash, and discoloration, Neuro: Negative for headache, weakness, numbness, tingling, and seizure. 17:36 Abdomen/GI: Positive for abdominal pain. 17:36 All other systems are negative. Exam: 17:36 Constitutional: This is a well developed, well nourished patient who is awake, alert, jmm and in no acute distress. Head/Face: atraumatic. Eyes: EOMI, no conjunctival erythema appreciated ENT: Moist Mucus Membranes Neck: Trachea midline, Supple Chest/axilla: Normal chest wall appearance and motion. Cardiovascular: Regular rate and rhythm. No edema appreciated Respiratory: Normal respirations, no respiratory distress appreciated 17:36 Back: Normal ROM Skin: General appearance color normal MS/ Extremity: Moves all extremities, no obvious deformities appreciated, no edema noted to the lower extremities Neuro: Awake and alert, normal gait Psych: Behavior is normal, Mood is normal, Patient is cooperative and pleasant 17:36 Abdomen/GI: Inspection: abdomen appears normal, Bowel sounds: normal, Palpation: soft, mild abdominal tenderness, in the right lower quadrant. 20:09 : Pelvic Exam: External exam: is normal, Speculum exam: normal findings, bimanual [facility] exam reveals normal findings. Vital Signs: 17:20 BP 120 / 81; Pulse 89; Resp 18; Temp 98.1; Pulse Ox 98% on R/A; Weight 72.57 kg (R); aj1 Height 5 ft. 3 in. (160.02 cm) (R); Pain 10/10; 18:20 BP 103 / 74; Pulse 70; Resp 16; Pulse Ox 97% on R/A; Pain 7/10; rb1 19:30 BP 114 / 71; Pulse 93; Resp 16; Pulse Ox 100% on R/A; jb4 17:20 Body Mass Index 28.34 (72.57 kg, 160.02 cm) aj1 MDM: 17:36 Patient medically screened. [facility] 20:02 Data reviewed: vital signs, nurses notes. Counseling: I had a detailed discussion with [facility] the patient and/or guardian regarding: the historical points, exam findings, and any diagnostic results supporting the discharge/admit diagnosis, lab results, radiology results, the need for outpatient follow up, to return to the emergency department if symptoms worsen or persist or if there are any questions or concerns that arise at home. 20:09 ED course: Ct negative. Pelvic exam negative. Patient is given early appendicitis [facility] return precautions. Patient understood and agrees with the plan of care. . 05/31 17:50 Order name: Basic Metabolic Panel; Complete Time: 19:27 [facility] 05/31 17:50 Order name: CBC with Diff; Complete Time: 18:48 [facility] 05/31 17:50 Order name: Creatinine for Radiology; Complete Time: 18:48 [facility] 05/31 17:50 Order name: Hepatic Function; Complete Time: 19:27 [facility] 05/31 17:50 Order name: Lipase; Complete Time: 19:27 [facility] 05/31 18:01 Order name: Urine Dipstick--Ancillary (enter results) [facility] 05/31 17:50 Order name: IV Saline Lock; Complete Time: 18:26 [facility] 05/31 17:50 Order name: Labs collected and sent; Complete Time: 18:26 [facility] 05/31 18:01 Order name: Urine --Ancillary (enter results) [facility] 05/31 18:04 Order name: CT Abd/Pelvis - W/Contrast; Complete Time: 19:27 [facility] 05/31 20:03 Order name: GC (GONORR/CHLAMYDIA) Probe [facility] 05/31 20:03 Order name: Wet Prep [facility] 05/31 20:03 Order name: GC (Zenon/Chl) Probe CX/URE [facility] 05/31 20:03 Order name: Wet Prep [facility] 05/31 17:51 Order name: Urine Dipstick-Ancillary (obtain specimen); Complete Time: 17:58 [facility] 05/31 17:51 Order name: Urine Test (obtain specimen); Complete Time: 17:58 [facility] 05/31 19:28 Order name: Pelvic Exam Setup; Complete Time: 20:12 jm Administered Medications: No medications were administered Disposition: 05/31/18 20:13 Discharged to Home. Impression: Abdominal and pelvic pain. - Condition is Stable. - Discharge Instructions: Abdominal Pain, Adult, Pelvic Pain, Female. - Medication Reconciliation Form, Thank You Letter, Antibiotic Education, Prescription Opioid Use form. - Follow up: Private Physician; When: 2 - 3 days; Reason: Recheck today's complaints, Continuance of care, Re-evaluation by your physician. - Notes: Please follow up with your primary care provider for reevaluation in 1 to 2 days. Please return to the Emergency Department if you develop - Fever - Vomiting - Vaginal Bleeding - Increased abdominal pain - Any other concerning symptoms. Addendum: 06/02/2018 07:14 Co-signature as Attending Physician, Jim Martinez MD I agree with the assessment and cornelia briseno plan of care. 07:14 Co-signature as Attending Physician, Jim Martinez MD I agree with the assessment and k dr plan of care. Signatures: Dispatcher [employer] EDTg Leon, RN RN aj1 Jim Martinez MD MD kdr Mickail, Joel, PA PA jmm Bryson, James, RN RN jb4 Corrections: (The following items were deleted from the chart) 05/31 20:32 20:13 05/31/2018 20:13 Discharged to Home. Impression: Abdominal and pelvic pain. jb4 Condition is Stable. Forms are Medication Reconciliation Form, Thank You Letter, Antibiotic Education, Prescription Opioid Use. Follow up: Private Physician; When: 2 - 3 days; Reason: Recheck today's complaints, Continuance of care, Re-evaluation by your physician. david
--- NOTE | 2018-05-31 20:14 | ER ---
Nurse's Notes [facility] Name: Parris Del Rio Age: 23 yrs Sex: Female : 1995 Arrival Date: 05/31/2018 Time: 17:11 Bed 15 Private MD: Diagnosis: Abdominal and pelvic pain Presentation: 05/31 17:17 Presenting complaint: Patient states: "I've been having these stabbing pain in my side, aj1 and this has been a couple of days already, and now its constantly hurting and it wraps around to my back" Reports urinary frequency. Reports nausea, Denies V/D. Transition of care: patient was not received from another setting of care. Onset of symptoms was May 31, 2018. Risk Assessment: Do you want to hurt yourself or someone else? Patient reports no desire to harm self or others. Initial Sepsis Screen: Does the patient meet any 2 criteria? No. Patient's initial sepsis screen is negative. Does the patient have a suspected source of infection? No. Patient's initial sepsis screen is negative. Care prior to arrival: None. 17:17 Method Of Arrival: Ambulatory [facility] 17:17 Acuity: JOY 3 aj1 Triage Assessment: 17:20 General: Appears in no apparent distress. uncomfortable, Behavior is cooperative, aj1 anxious. Pain: Complains of pain in right lower quadrant Pain radiates to right low back Pain currently is 10 out of 10 on a pain scale. Neuro: Level of Consciousness is awake, alert, obeys commands. Cardiovascular: Patient's skin is warm and dry. Respiratory: Airway is patent Respiratory effort is even, unlabored, Respiratory pattern is regular, symmetrical. GI: Reports lower abdominal pain. 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 - Social history:: Smoking status: Patient/guardian denies using tobacco. - Ebola Screening: : Patient denies travel to an Ebola-affected area in the 21 days before illness onset. Screenin:25 Abuse screen: Denies threats or abuse. Nutritional screening: No deficits noted. rb1 Tuberculosis screening: No symptoms or risk factors identified. Fall Risk None identified. Assessment: 17:25 General: Appears in no apparent distress. comfortable, Behavior is calm, cooperative, rb1 Denies fever. Pain: Complains of pain in right lower quadrant Pain currently is 7 out of 10 on a pain scale. Neuro: Level of Consciousness is awake, alert, obeys commands, Oriented to person, place, time, situation. Cardiovascular: Capillary refill < 3 seconds is brisk in bilateral fingers. Respiratory: Airway is patent Respiratory effort is even, unlabored, Respiratory pattern is regular, symmetrical. GI: No signs and/or symptoms were reported involving the gastrointestinal system. Bowel sounds present X 4 quads. Abd is soft Abdomen is tender to palpation in right lower quadrant. : No signs and/or symptoms were reported regarding the genitourinary system. Derm: Skin is dry, Skin is normal, Skin temperature is warm. Musculoskeletal: Range of motion: intact in all extremities. 18:25 Reassessment: Patient appears in no apparent distress at this time. No changes from rb1 previously documented assessment. 19:01 Reassessment: Pt. went to CT. rb1 19:20 Reassessment: Patient appears in no apparent distress at this time. No changes from jb4 previously documented assessment. Patient is alert, oriented x 3, equal unlabored respirations, skin warm/dry/pink. Pt back from CT. 20:27 Reassessment: Patient appears in no apparent distress at this time. No changes from jb4 previously documented assessment. PT Dc'ed home, ambulatory, denied questions and verbalized understanding of dc instructions. Walked out with steady gait, no s/s of pain or distress noted. Vital Signs: 17:20 BP 120 / 81; Pulse 89; Resp 18; Temp 98.1; Pulse Ox 98% on R/A; Weight 72.57 kg (R); aj1 Height 5 ft. 3 in. (160.02 cm) (R); Pain 10/10; 18:20 BP 103 / 74; Pulse 70; Resp 16; Pulse Ox 97% on R/A; Pain 7/10; rb1 19:30 BP 114 / 71; Pulse 93; Resp 16; Pulse Ox 100% on R/A; jb4 17:20 Body Mass Index 28.34 (72.57 kg, 160.02 cm) aj1 ED Course: 17:11 Patient arrived in ED. mr 17:19 Triage completed. aj1 17:20 Arm band placed on Patient placed in an exam room. aj1 17:22 Gianfranco Luo PA is PHCP. [facility] 17:22 Jim Martinez MD is Attending Physician. [facility] 17:25 Ruben Olson, NANCI is Primary Nurse. rv 17:25 Patient has correct armband on for positive identification. Placed in gown. Bed in low rb1 position. Call light in reach. Side rails up X 1. Pulse ox on. NIBP on. Warm blanket given. 17:42 Primary Nurse role handed off by Ruben Olson, NANCI rb1 17:42 Rachel Bauer, NANCI is Primary Nurse. rb1 17:43 Rachel Bauer, NANCI is Primary Nurse. rb1 18:07 Radiology exam delayed due to lab results not completed at this time. (BUN/Creatinine). 18:27 Initial lab(s) drawn, by ma, sent to lab. Inserted saline lock: 22 gauge in right 5 antecubital area, using aseptic technique. Blood collected. 18:28 Urine --Ancillary (enter results) Sent. [facility] 18:28 Urine Dipstick--Ancillary (enter results) Sent. [facility] 18:28 Basic Metabolic Panel Sent. 5 18:28 CBC with Diff Sent. [facility] 18:28 Creatinine for Radiology Sent. 5 18:29 Hepatic Function Sent. [facility] 18:29 Lipase Sent. [facility] 19:00 Report given to NANCI Burton. rb1 19:12 CT Abd/Pelvis - W/Contrast In Process Unspecified. EDMS 20:00 Assist provider with pelvic exam: Set up pelvic tray. Performed by Gianfranco MCKEON bb Specimens sent to lab. Patient tolerated well. 20:02 Primary Nurse role handed off by Rachel Bauer, NANCI jb4 20:02 Maximo Elizabeth, NANCI is Primary Nurse. jb4 20:13 GC (GONORR/CHLAMYDIA) Probe Sent. bb 20:13 Wet Prep Sent. bb 20:32 IV discontinued, intact, bleeding controlled. jb4 Administered Medications: No medications were administered Outcome: 20:13 Discharge ordered by . jm 20:32 Discharged to home ambulatory. jb4 20:32 Condition: stable 20:32 Discharge instructions given to patient, Instructed on discharge instructions, follow up and referral plans. Demonstrated understanding of instructions, follow-up care. 20:32 Patient left the ED. jb4 Signatures: Dispatcher [employer] EDTg Leon, RN RN aj1 Gianfranco Luo PA PA jmm Rivera, Mary mr Toby, Lorraine Yañez, RN RN bb Rachel Bauer, NANCI RN [facility] Maximo Elizabeth RN RN jb4 Jeanie Case Ruben Snow RN RN rv
[2018-05-31 20:39] VITALS: TEMP 98.1
[2018-05-31 20:42] VITALS: BP 114/71; O2SAT 100
[2018-06-04 11:44] LABS: C.trachomatis RNA,TMA Not Detected (Not Detected)
== END 2018-05-31 20:32 | disposition home or self-care (01) ==
LOC: ER 17:09
DX: R10.31 Right lower quadrant pain (principal); R10.2 Pelvic and perineal pain; F41.9 Anxiety disorder, unspecified
CPT/HCPCS: 36415; 74177; 80048; 80076; 81003; 81025; 83690; 85025; 87210; 87490; 87590; 99284; Q9967

== ENCOUNTER 2018-11-26 21:24 | Emergency (ER) | payer OTHER ==
--- NOTE | 2018-11-26 22:04 | ER ---
Nurse's Notes [facility] Name: Parris Del Rio Age: 23 yrs Sex: Female : 1995 Arrival Date: 11/26/2018 Time: 21:27 Bed 8 Private MD: Naveen Call Diagnosis: Bronchitis, not specified as acute or chronic Presentation: 11/26 21:29 Presenting complaint: Patient states: sore throat for a couple days, cough. Transition la1 of care: patient was not received from another setting of care. Onset of symptoms was November 26, 2018. Risk Assessment: Do you want to hurt yourself or someone else? Patient reports no desire to harm self or others. Initial Sepsis Screen: Does the patient meet any 2 criteria? No. Patient's initial sepsis screen is negative. Does the patient have a suspected source of infection? No. Patient's initial sepsis screen is negative. Care prior to arrival: None. 21:29 Method Of Arrival: Ambulatory la1 21:29 Acuity: JOY 4 la1 Historical: - Allergies: 21:29 No Known Allergies; la1 - PMHx: 21:29 Anxiety; la1 - Immunization history:: Adult Immunizations up to date. - Social history:: Smoking status: Patient/guardian denies using tobacco. - Ebola Screening: : No symptoms or risks identified at this time. Screenin:57 Abuse screen: Denies threats or abuse. Nutritional screening: No deficits noted. ea Tuberculosis screening: No symptoms or risk factors identified. Fall Risk None identified. Assessment: 21:40 General: Appears uncomfortable, Behavior is appropriate for age. Pain: Complains of ea pain in left aspect of posterior pharynx and right aspect of posterior pharynx Pain began 5 days ago. Neuro: Level of Consciousness is awake, alert, obeys commands, Oriented to person, place, time, situation. Cardiovascular: Patient's skin is warm and dry. Respiratory: Airway is patent Respiratory effort is even, unlabored, Respiratory pattern is regular, symmetrical, Breath sounds are clear bilaterally. EENT: Throat is reddened. 22:23 Reassessment: Patient and/or family updated on plan of care and expected duration. Pain ea level reassessed. Patient is alert, oriented x 3, equal unlabored respirations, skin warm/dry/pink. Discharge instruction given to patient, verbalized the understanding of instruction. Vital Signs: 21:30 BP 122 / 84; Pulse 105; Resp 16; Temp 97.5; Pulse Ox 100% on R/A; Weight 61.23 kg; la1 Height 5 ft. 4 in. (162.56 cm); 22:00 BP 102 / 70; Pulse 95; Resp 18; Pulse Ox 100% on R/A; ea 21:30 Body Mass Index 23.17 (61.23 kg, 162.56 cm) la1 ED Course: 21:27 Patient arrived in ED. es 21:27 Naveen Call DO is Private Physician. es 21:29 Triage completed. la1 21:30 Arm band placed on left wrist. la1 21:31 Aissatou Wilkes F[facility]-C is [facility]. snw 21:31 Israel العراقي MD is Attending Physician. snw 21:31 Bria Cobb RN is Primary Nurse. ea 21:40 Patient has correct armband on for positive identification. Bed in low position. Call ea light in reach. Side rails up X2. 22:02 Naveen Call DO is Referral Physician. snw 22:16 No provider procedures requiring assistance completed. Patient did not have IV access ea during this emergency room visit. Administered Medications: 22:10 Drug: Decadron 8 mg Route: PO; ea 22:20 Follow up: Response: No adverse reaction ea Outcome: 22:03 Discharge ordered by . snw 22:22 Discharged to home ambulatory. ea 22:22 Condition: stable 22:22 Discharge instructions given to patient, Instructed on discharge instructions, follow up and referral plans. medication usage, Demonstrated understanding of instructions, follow-up care, medications. 22:22 Prescriptions given X 3. 22:23 Patient left the ED. ea Signatures: Aissatou Wilkes FNP-C DOG OR HORSE RACING OFFICIAL-Karla Chan Lee RN RN la1 Bria Cobb RN RN ea
--- NOTE | 2018-11-26 22:04 | EDPHYS ---
Physician Documentation [facility] Name: Parris Del Rio Age: 23 yrs Sex: Female : 1995 Arrival Date: 11/26/2018 Time: 21:27 Bed 8 Private MD: Naveen Call ED Physician Israel العراقي HPI: 11/26 21:56 This 23 yrs old Female presents to ER via Ambulatory with complaints of Sore snw Throat, Cough. 21:56 The patient presents with sore throat. The patient describes throat pain as raw, snw scratchy. Onset: The symptoms/episode began/occurred gradually, 5 day(s) ago, and became persistent. Severity of symptoms: At their worst the symptoms were moderate. Associated signs and symptoms: Pertinent positives: cough, diarrhea, flu-like symptoms, malaise. The patient has not experienced similar symptoms in the past. The patient has not recently seen a physician. Historical: - Allergies: 21:29 No Known Allergies; la1 - PMHx: 21:29 Anxiety; la1 - Immunization history:: Adult Immunizations up to date. - Social history:: Smoking status: Patient/guardian denies using tobacco. - Ebola Screening: : No symptoms or risks identified at this time. ROS: 21:55 Eyes: Negative for injury, pain, redness, and discharge. snw 21:55 Neck: Negative for injury, pain, and swelling, Cardiovascular: Negative for chest pain, palpitations, and edema. 21:55 Back: Negative for injury and pain, : Negative for injury, bleeding, discharge, and swelling, MS/Extremity: Negative for injury and deformity, Skin: Negative for injury, rash, and discoloration, Neuro: Negative for headache, weakness, numbness, tingling, and seizure. 21:55 Constitutional: Positive for fatigue, fever, malaise. 21:55 ENT: Positive for sinus congestion, sore throat. 21:55 Respiratory: Positive for cough. 21:55 Abdomen/GI: Positive for diarrhea, Negative for abdominal pain, vomiting. Exam: 21:53 Head/Face: Normocephalic, atraumatic. Eyes: Pupils equal round and reactive to light, snw extra-ocular motions intact. Lids and lashes normal. Conjunctiva and sclera are non-icteric and not injected. Cornea within normal limits. Periorbital areas with no swelling, redness, or edema. ENT: Nares patent. No nasal discharge, no septal abnormalities noted. Tympanic membranes are normal and external auditory canals are clear. Oropharynx with redness, petechiae to posterior palate, No swelling, or masses, exudates, or evidence of obstruction, uvula midline. Mucous membranes moist. Neck: Trachea midline, no thyromegaly or masses palpated, and no cervical lymphadenopathy. Supple, full range of motion without nuchal rigidity, or vertebral point tenderness. No Meningismus. Chest/axilla: Normal chest wall appearance and motion. Nontender with no deformity. No lesions are appreciated. 21:53 Respiratory: Lungs have equal breath sounds bilaterally, clear to auscultation and percussion. No rales, rhonchi or wheezes noted. No increased work of breathing, no retractions or nasal flaring. Abdomen/GI: Soft, non-tender, with normal bowel sounds. No distension or tympany. No guarding or rebound. No evidence of tenderness throughout. Back: No spinal tenderness. No costovertebral tenderness. Full range of motion. Skin: Warm, dry with normal turgor. Normal color with no rashes, no lesions, and no evidence of cellulitis. MS/ Extremity: Pulses equal, no cyanosis. Neurovascular intact. Full, normal range of motion. Neuro: Awake and alert, GCS 15, oriented to person, place, time, and situation. Cranial nerves II-XII grossly intact. Motor strength 5/5 in all extremities. Sensory grossly intact. Cerebellar exam normal. Normal gait. Psych: Awake, alert, with orientation to person, place and time. Behavior, mood, and affect are within normal limits. 21:53 Constitutional: The patient appears alert, awake, uncomfortable. 21:53 Cardiovascular: Rate: tachycardic, Pulses: no pulse deficits are appreciated, Heart sounds: normal. Vital Signs: 21:30 BP 122 / 84; Pulse 105; Resp 16; Temp 97.5; Pulse Ox 100% on R/A; Weight 61.23 kg; la1 Height 5 ft. 4 in. (162.56 cm); 22:00 BP 102 / 70; Pulse 95; Resp 18; Pulse Ox 100% on R/A; ea 21:30 Body Mass Index 23.17 (61.23 kg, 162.56 cm) la1 MDM: 21:44 Patient medically screened. snw 22:03 Data reviewed: vital signs, nurses notes. Data interpreted: Pulse oximetry: on room air snw is 100 %. Interpretation: normal. Counseling: I had a detailed discussion with the patient and/or guardian regarding: the historical points, exam findings, and any diagnostic results supporting the discharge/admit diagnosis, lab results, the need for outpatient follow up, to return to the emergency department if symptoms worsen or persist or if there are any questions or concerns that arise at home. Special discussion: Based on the history and exam findings, there is no indication for further emergent testing or inpatient evaluation. I discussed with the patient/guardian the need to see the primary care provider for further evaluation of the symptoms. 11/26 21:31 Order name: Flu; Complete Time: 22:02 snw 11/26 21:31 Order name: Strep; Complete Time: 22:02 snw 11/26 22:02 Order name: Throat Culture EDMS Administered Medications: 22:10 Drug: Decadron 8 mg Route: PO; ea 22:20 Follow up: Response: No adverse reaction ea Disposition: 22:59 Co-signature as Attending Physician, Israel العراقي MD. rn Disposition: 11/26/18 22:03 Discharged to Home. Impression: Bronchitis, not specified as acute or chronic. - Condition is Stable. - Discharge Instructions: Acute Bronchitis, Adult, Cough, Adult. - Prescriptions for Zyrtec 10 mg Oral Tablet - take 1 tablet by ORAL route once daily As needed; 20 tablet. Tessalon Perles 100 mg Oral Capsule - take 1 capsule by ORAL route every 8 hours As needed; 15 capsule. Prednisone 20 mg Oral Tablet - take 2 tablet by ORAL route once daily for 5 days; 10 tablet. - Work release form, Medication Reconciliation Form, Thank You Letter, Antibiotic Education, Prescription Opioid Use form. - Follow up: Naveen Call DO; When: 1 week; Reason: Recheck today's complaints, Continuance of care, Re-evaluation by your physician. Follow up: Emergency Department; When: As needed; Reason: Worsening of condition. Signatures: Dispatcher [employer] EDMS Aissatou Wilkes, RAIL WALKER-C RAIL WALKER-Csnw Israel العراقي MD MD rn Attema, Lee, RN RN la1 Bria Cobb RN NANCI ea Corrections: (The following items were deleted from the chart) 22:23 22:03 11/26/2018 22:03 Discharged to Home. Impression: Bronchitis, not specified as ea acute or chronic. Condition is Stable. Forms are Medication Reconciliation Form, Thank You Letter, Antibiotic Education, Prescription Opioid Use. Follow up: [facility]; When: 1 week; Reason: Recheck today's complaints, Continuance of care, Re-evaluation by your physician. Follow up: Emergency Department; When: As needed; Reason: Worsening of condition. snw
[2018-11-26] MEDS ORDERED: dexAMETHasone 4 MG TAB ONE (22:07)
[2018-11-26 23:05] VITALS: TEMP 97.5; O2SAT 100
[2018-11-26 23:06] VITALS: BP 102/70
== END 2018-11-26 22:23 | disposition home or self-care (01) ==
LOC: ER 21:24
DX: J40 Bronchitis, not specified as acute or chronic (principal)
CPT/HCPCS: 87070; 87081; 87804 ×2; 99283; J8540

== ENCOUNTER 2019-08-15 11:32 | Emergency (ER) | payer OTHER ==
--- OUTSIDE RECORDS SUMMARY | 2019-08-15 11:34 | XMS REPORT | Continuity of Care Document ---
:1995 Author Organization [facility] t Address [address] [place] [address] Care Team Providers Name Role Phone Unavailable Unavailable Unavailable Problems Condition Condition Condition Status Onset Resolution Last Treating Co mments Source Name Details Category Date Date Treatment Clinician Date Panic Panic Problem Active [facility] [episodic [episodic Cheikh ricardo paroxysmal paroxysmal l anxiety] anxiety] Outpat i ent Clinics Generalize Generalize Problem Active [facility] anxiety d anxiety [facility] - disorder disorder [facility] Allergies, Adverse Reactions, Alerts This patient has no known allergies or adverse reactions. Medications Ordered Filled Start Stop Current Ordering Indication Dosage Frequency Signature Comments Components Source Medication Medication Date Date Medication? Clinician (SIG) Name Name BusPIRone BusPIRone Yes Marcel [address] [facility] HCl HCl 4-03 Rekhi [facility] - 00:[facility]: [facility] 00 [facility] Lexapro Lexapro Yes Marcel take 1/[address] [facility] 4-01 Rekhi tab qd x 1 [facility] - 00:[facility]: week then Memoria 00 1 tab qd l [facility] Immunizations Ordered Filled Immunization Date Status Comments Sourc e Immunization Name Name Afluria Afluria 2018-05-[address] [facility]00 [facility] Procedures This patient has no known procedures. Encounters Start End Encounter Admission Attending Care Care Encounter Source Date/Time Date/Time Type Type Clinicians Facility Department ID 2018-10-01 2018-10-01 Outpatient Reinier Fernandez [id number] [facility] 09:40:00 09:40:00 t [facility] 2018-08-25 2018-08-25 Outpatient Reinier Hillst [id number] [facility] 08:53:00 08:53:00 [place] [facility] [address] [facility] Out[facility] Clinics 2018-08-05 2018-08-05 [facility] [id number] 11:45:00 11:45:00 t [employer] [facility] Outpati ent Clinics 2018-08-05 2018-08-05 [facility] [id number] [facility] 10:15:00 10:15:00 t [facility] Outpat[facility] Clinics 2018-05-14 2018-05-14 [facility] [id number] 15:01:00 15:01:00 t [employer] [facility] Outpat[facility] Clinics 2018-05-12 2018-05-12 [facility] [id number] 13:30:00 13:30:00 t [employer] [facility] Results This patient has no known results.
[2019-08-15 12:03] LABS: Urine Blood 3+ (NEG); Urine Glucose NEGATIVE (NEG); Urine Protein 2+ (NEG); Urine Specific Gravity >1.030 (1.005-1.030); Urine pH 5.5 (5.0-7.0)
[2019-08-15 12:10] LABS: Urine Bacteria >50 /HPF (<20); Urine Culture Reflex Order REFLEXED
[2019-08-15] MEDS ORDERED: ONDANSETRON 4 MG/2 ML VIAL ONE (12:14)
[2019-08-15 12:24] LABS: Basophils % 0.5 % (0-1.3); Hematocrit 43.6 % (36.0-45.0); Lymphocytes % 19.1 % (15.3-44.8); RBC Red Blood Cell Count 4.96 M/uL (3.86-4.86)
[2019-08-15 12:39] LABS: BUN Blood Urea Nitrogen 15 mg/dL (7-18); Bicarbonate 24 mmol/L (21-32); Glucose Level 104 mg/dL (74-106); Potassium 3.5 mmol/L (3.5-5.1); Sodium Level 138 mmol/L (136-145)
--- NOTE | 2019-08-15 15:10 | RAD REPORT ---
EXAM DESCRIPTION: US - Transvaginal OB - 08/15/2019 2:57 pm CLINICAL HISTORY: VAGINAL BLEEDING Pain and swelling COMPARISON: TRANSVAGINALOB dated 01/03/2015 FINDINGS: A single gestational sac is seen within the uterus. Sac is slightly oblong in shape. No yo lk sac or IUP is confirmed. Mean sac diameter is 6 mm correlating to estimated gestational age of 5 w eeks 2 days. The maternal adnexa and ovaries are within normal limits. Normal Doppler blood flow was demonstrated to both ovaries. IMPRESSION: Single gestational sac with estimated gestational age 5 weeks 2 days noted. No yolk sac or embryo yet detected. Recommend followup serial HCG levels and pelvic sonography 10-12 days.
--- NOTE | 2019-08-15 15:11 | EDPHYS ---
Physician Documentation [facility] Name: Parris Del Rio Age: 24 yrs Sex: Female : 1995 Arrival Date: 08/15/2019 Time: 11:36 Bed 6 Private MD: Naveen Call ED Physician Devyn Kwon HPI: 08/14 12:07 This 24 yrs old Female presents to ER via Unassigned with complaints of pm1 Vaginal Bleeding. 12:07 The patient presents with urinary symptoms, burning with urination, vaginal bleeding pm1 that is. Onset: The symptoms/episode began/occurred 2 day(s) ago. Modifying factors: The symptoms are alleviated by nothing, the symptoms are aggravated by urinating. Associated signs and symptoms: Pertinent positives: cramping, right flank pain, Pertinent negatives: fever. 12:07 Severity of symptoms: in the emergency department the symptoms are actually worse. The pm1 patient is sexually active. The patient's method of control includes nothing. The patient has not experienced similar symptoms in the past. The patient has not recently seen a physician. Patient has not taken a home test. Patient believes that she is about 2 weeks late on her cycle. 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 - Social history:: Smoking status: Patient denies any tobacco usage or history of. ROS: 12:07 Positive for pelvic pain, burning with urination, vaginal bleeding, Negative for pm1 flank pain. 12:07 Constitutional: Negative for fever, chills, and weight loss, Eyes: Negative for injury, pain, redness, and discharge, ENT: Negative for injury, pain, and discharge, Neck: Negative for injury, pain, and swelling, Cardiovascular: Negative for chest pain, palpitations, and edema, Respiratory: Negative for shortness of breath, cough, wheezing, and pleuritic chest pain. 12:07 Back: Negative for injury and pain. 12:07 MS/Extremity: Negative for injury and deformity, Skin: Negative for injury, rash, and discoloration, Neuro: Negative for headache, weakness, numbness, tingling, and seizure. 12:07 Abdomen/GI: Positive for abdominal pain, of the suprapubic area, Negative for nausea, vomiting, and diarrhea, constipation. Exam: 12:07 Constitutional: This is a well developed, well nourished patient who is awake, alert, pm1 and in no acute distress. Head/Face: Normocephalic, atraumatic. Chest/axilla: Normal chest wall appearance and motion. Nontender with no deformity. No lesions are appreciated. 12:07 Back: No spinal tenderness. No costovertebral tenderness. Full range of motion. Skin: Warm, dry with normal turgor. Normal color with no rashes, no lesions, and no evidence of cellulitis. MS/ Extremity: Pulses equal, no cyanosis. Neurovascular intact. Full, normal range of motion. 12:07 Cardiovascular: Exam negative for acute changes, Rate: normal, Rhythm: regular, Pulses: no pulse deficits are appreciated. 12:07 Respiratory: Exam negative for acute changes, respiratory distress, shortness of breath. 12:07 Abdomen/GI: Inspection: abdomen appears normal, Palpation: soft, in all quadrants, mild abdominal tenderness, in the suprapubic area. 12:07 Neuro: Exam negative for acute changes, Orientation: is normal, Mentation: is normal, Motor: is normal, moves all fours. Vital Signs: 12:01 BP 141 / 92; Pulse 92; Resp 18; Pulse Ox 100% on R/A; Pain 8/10; dm5 12:08 BP 114 / 78; Pulse 81; Resp 16; Pulse Ox 96% ; sv 13:00 BP 113 / 71; Pulse 72; Resp 16; Pulse Ox 97% ; sv 13:30 BP 115 / 76; Pulse 72; Resp 16; Pulse Ox 99% ; sv 15:00 BP 119 / 78; Pulse 76; Resp 18; Temp 98.0; Pulse Ox 99% on R/A; ph MDM: 11:49 Patient medically screened. pm1 15:09 Data reviewed: vital signs. Data interpreted: Pulse oximetry: on room air is 99 %. pm1 Interpretation: normal. Counseling: I had a detailed discussion with the patient and/or guardian regarding: the historical points, exam findings, and any diagnostic results supporting the discharge/admit diagnosis, lab results, radiology results, the need for outpatient follow up, an OB/Gyne specialist, repeat beta hcg in 2-3 days, to return to the emergency department if symptoms worsen or persist or if there are any questions or concerns that arise at home. 08/14 11:53 Order name: Abo/rh Typing; Complete Time: 13:07 pm08/14 11:53 Order name: Basic Metabolic Panel; Complete Time: 13:07 pm08/14 11:53 Order name: CBC with Diff; Complete Time: 13:07 pm1 08/14 11:56 Order name: Urine Microscopic Only [facility] 08/14 11:57 Order name: Urine Microscopic Only; Complete Time: 12:14 EDRI 08/14 11:59 Order name: Urine Dipstick--Ancillary (enter results); Complete Time: 12:07 dm5 08/14 11:53 Order name: Urine Test (obtain specimen); Complete Time: 11:56 pm1 08/14 11:53 Order name: IV Saline Lock; Complete Time: 12:20 pm1 08/14 11:59 Order name: Urine --Ancillary (enter results); Complete Time: 12:07 dm5 08/14 12:12 Order name: Urine Culture [facility] 08/14 13:08 Order name: Quantitative Hcg; Complete Time: 14:11 pm1 08/14 14:12 Order name: US Transvaginal Ob; Complete Time: 15:12 pm1 08/14 11:53 Order name: Labs collected and sent; Complete Time: 12:20 pm08/14 11:53 Order name: NPO; Complete Time: 12:25 pm1 08/14 11:53 Order name: Urine Dipstick-Ancillary (obtain specimen); Complete Time: 11:56 pm1 Administered Medications: 12:25 Drug: Zofran (Ondansetron) 4 mg Route: IVP; Site: right antecubital; ph 15:33 Follow up: Response: No adverse reaction ph 15:33 Drug: Rocephin 1 grams Route: IV; Rate: calculated rate; Site: right antecubital; ph 15:36 Follow up: Response: No adverse reaction; IV Status: Completed infusion ph Disposition: 18:33 Co-signature as Attending Physician, Devyn Kwon MD. ma2 Disposition: 08/15/19 15:11 Discharged to Home. Impression: Threatened , Urinary tract infection, site not specified. - Condition is Stable. - Discharge Instructions: Threatened Miscarriage, and Urinary Tract Infection, Pelvic Rest. - Prescriptions for Macrobid 100 mg Oral Capsule - take 1 capsule by ORAL route every 12 hours for 10 days; 20 capsule. - Medication Reconciliation Form, Thank You Letter, Antibiotic Education, Prescription Opioid Use form. - Follow up: Emergency Department; When: As needed; Reason: Worsening of condition. Follow up: Private Physician; When: 2 - 3 days; Reason: Recheck today's complaints, Continuance of care, Re-evaluation by your physician. - Problem is new. - Symptoms have improved. Signatures: Dispatcher [employer] EDMS Elise Mcgarry RN RN dm5 Isabella Cabrera RN RN Jose Liriano, JG LIGHT BULB TESTER pm1 Devyn Kwon MD MD [facility] Corrections: (The following items were deleted from the chart) 15:11 15:11 08/15/2019 15:11 Discharged to Home. Impression: Threatened . Condition pm1 is Stable. Forms are Medication Reconciliation Form, Thank You Letter, Antibiotic Education, Prescription Opioid Use. Follow up: Emergency Department; When: As needed; Reason: Worsening of condition. Follow up: Private Physician; When: 2 - 3 days; Reason: Recheck today's complaints, Continuance of care, Re-evaluation by your physician. Problem is new. Symptoms have improved. pm1 15:38 15:11 08/15/2019 15:11 Discharged to Home. Impression: Threatened ; Urinary ph tract infection, site not specified. Condition is Stable. Discharge Instructions: Threatened Miscarriage, and Urinary Tract Infection, Pelvic Rest. Prescriptions for Macrobid 100 mg Oral Capsule - take 1 capsule by ORAL route every 12 hours for 10 days; 20 capsule. and Forms are Medication Reconciliation Form, Thank You Letter, Antibiotic Education, Prescription Opioid Use. Follow up: Emergency Department; When: As needed; Reason: Worsening of condition. Follow up: Private Physician; When: 2 - 3 days; Reason: Recheck today's complaints, Continuance of care, Re-evaluation by your physician. Problem is new. Symptoms have improved. pm1
--- NOTE | 2019-08-15 15:11 | ER ---
Nurse's Notes [facility] Name: Parris Del Rio Age: 24 yrs Sex: Female : 1995 Arrival Date: 08/15/2019 Time: 11:36 Bed 6 Private MD: Naveen Call Diagnosis: Threatened ;Urinary tract infection, site not specified Presentation: 08/14 11:54 Chief complaint: Patient states: vaginal bleeding started . Pain with urination dm5 started about a week ago along with suprapubic pain. Pain also reported in lower back. Back pain rate at 8/10 at this time. 12:08 Coronavirus screen: Proceed with normal triage. Patient denies a cough. Patient denies dm5 shortness of breath or difficulty breathing. Patient denies measured and/or subjective temperature greater than 100.4F prior to today's visit. Patient denies travel on a cruise ship or to a country the [facility] currently lists as an affected area. Patient denies contact with known and/or suspected case of COVID-19. Ebola Screen: Patient negative for fever greater than or equal to 101.5 degrees Fahrenheit, and additional compatible Ebola Virus Disease symptoms Patient denies exposure to infectious person. Patient denies travel to an Ebola-affected area in the 21 days before illness onset. No symptoms or risks identified at this time. Initial Sepsis Screen: Does the patient meet any 2 criteria? No. Patient's initial sepsis screen is negative. Does the patient have a suspected source of infection? No. Patient's initial sepsis screen is negative. Risk Assessment: Do you want to hurt yourself or someone else? Patient reports no desire to harm self or others. Onset of symptoms was August 13, 2019. 12:08 Method Of Arrival: Ambulatory dm5 12:08 Acuity: JOY 3 dm5 Triage Assessment: 12:01 General: Appears in no apparent distress. Behavior is calm, cooperative. Pain: dm5 Complains of pain in back Pain currently is 8 out of 10 on a pain scale. Neuro: Level of Consciousness is awake, alert, obeys commands, Oriented to person, place, time. Respiratory: Airway is patent Respiratory effort is even, unlabored. : Reports vaginal bleeding that is bright red. 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 - Social history:: Smoking status: Patient denies any tobacco usage or history of. Screenin:20 Abuse screen: Denies threats or abuse. Denies injuries from another. Nutritional ph screening: No deficits noted. Tuberculosis screening: No symptoms or risk factors identified. Fall Risk None identified. Assessment: 12:25 General: Appears in no apparent distress. comfortable, well groomed, Behavior is calm, ph cooperative, appropriate for age, Denies fever. Pain: Complains of pain in suprapubic area. Neuro: Level of Consciousness is awake, alert, obeys commands, Oriented to person, place, time, situation, Denies weakness dizziness. Cardiovascular: Denies fatigue, lightheadedness, shortness of breath, Capillary refill < 3 seconds in bilateral fingers Patient's skin is warm and dry. Respiratory: Airway is patent Respiratory effort is even, unlabored, Respiratory pattern is regular, symmetrical. GI: Abdomen is round non-distended, Reports lower abdominal pain, nausea, Patient currently denies diarrhea, vomiting. : Reports burning with urination, pain in suprapubic area urinary frequency, vaginal bleeding that is heavy last night and spotty today. Derm: Skin is intact, is healthy with good turgor, Skin is pink, warm \T\ dry. Musculoskeletal: Circulation, motion, and sensation intact. Range of motion: intact in all extremities. 14:00 Reassessment: Patient appears in no apparent distress at this time. Patient and/or ph family updated on plan of care and expected duration. Pain level reassessed. Patient is alert, oriented x 3, equal unlabored respirations, skin warm/dry/pink. 15:37 Reassessment: Patient appears in no apparent distress at this time. Patient and/or ph family updated on plan of care and expected duration. Pain level reassessed. Patient is alert, oriented x 3, equal unlabored respirations, skin warm/dry/pink. Pt d/c home, instructed to follow up w/ OB. Vital Signs: 12:01 BP 141 / 92; Pulse 92; Resp 18; Pulse Ox 100% on R/A; Pain 8/10; dm5 12:08 BP 114 / 78; Pulse 81; Resp 16; Pulse Ox 96% ; sv 13:00 BP 113 / 71; Pulse 72; Resp 16; Pulse Ox 97% ; sv 13:30 BP 115 / 76; Pulse 72; Resp 16; Pulse Ox 99% ; sv 15:00 BP 119 / 78; Pulse 76; Resp 18; Temp 98.0; Pulse Ox 99% on R/A; ph ED Course: 11:36 Patient arrived in ED. mr 11:36 Naveen Call DO is Private Physician. mr 11:43 Jose Liriano, JG is PHCP. pm1 11:43 Devyn Kwon MD is Attending Physician. pm1 12:01 Arm band placed on right wrist. Patient placed in an exam room. dm5 12:02 Isabella Cabrera, RN is Primary Nurse. ph 12:09 Triage completed. dm5 12:10 Urine collected: clean catch specimen, clear. kj1 12:10 Initial lab(s) drawn, by hi, sent to lab. kj1 12:18 Inserted saline lock: 20 gauge in right antecubital area, using aseptic technique. kj1 Blood collected. 12:19 Patient has correct armband on for positive identification. Placed in gown. Bed in low ph position. Call light in reach. Side rails up X 1. Pulse ox on. NIBP on. Door closed. Noise minimized. Warm blanket given. 14:57 US Transvaginal Ob In Process Unspecified. EDMS 15:38 No provider procedures requiring assistance completed. IV discontinued, intact, ph bleeding controlled, No redness/swelling at site. Pressure dressing applied. Administered Medications: 12:25 Drug: Zofran (Ondansetron) 4 mg Route: IVP; Site: right antecubital; ph 15:33 Follow up: Response: No adverse reaction ph 15:33 Drug: Rocephin 1 grams Route: IV; Rate: calculated rate; Site: right antecubital; ph 15:36 Follow up: Response: No adverse reaction; IV Status: Completed infusion ph Outcome: 15:11 Discharge ordered by . pm1 15:38 Discharged to home ambulatory. ph 15:38 Condition: good 15:38 Discharge instructions given to patient, Instructed on discharge instructions, follow up and referral plans. medication usage, Demonstrated understanding of instructions, follow-up care, medications, Prescriptions given X 1. 15:38 Patient left the ED. ph Addendum: 08/18/2019 19:35 Addendum: Culture Results: Positive urine culture. No further action required. Bacteria i w sensitive to prescribed antibiotic. Signatures: Dispatcher [employer] EDElise Garcia, RN RN Lee Ann Valladares, RN RN Allie Hsu Irene, RN Isabella Beaver RN RN ph Marinas, Patrick, LEGAL SERVICES PROFESSIONAL LEGAL SERVICES PROFESSIONAL pm1 Rachelle Sheriff kj1 Corrections: (The following items were deleted from the chart) 08/14 12:08 12:00 BP 114 / 78; Pulse 81bpm; Resp 16bpm; Pulse Ox 96%; sv sv 12:19 12:18 Initial lab(s) drawn, by me, sent to lab. kj1 kj1
[2019-08-15] MEDS ORDERED: CEFTRIAXONE/SWI 1gm 1 GM/10 ML SYR ONE (15:32)
[2019-08-15 16:19] VITALS: O2SAT 99
[2019-08-15 16:20] VITALS: BP 119/78; TEMP 98
== END 2019-08-15 15:38 | disposition home or self-care (01) ==
LOC: ER 11:32
DX: O20.0 Threatened abortion (principal); O23.41 Unspecified infection of urinary tract in pregnancy, first trimester; Z3A.01 Less than 8 weeks gestation of pregnancy
CPT/HCPCS: 87088; 85025; 87086; 80048; 36415; 86900; 81025; 86901; 84702; 87077; 87186; 76817; 96375; 96374; 99284; J0696; J2405; 81003; 81015

== ENCOUNTER 2020-11-20 08:09 | Emergency (ER) | payer OTHER ==
[2020-11-20 08:30] LABS: Urine Blood 1+ (Negative); Urine Glucose Negative (Negative); Urine Protein 1+ (Negative)
[2020-11-20 08:45] LABS: Urine Bacteria >50 /HPF (<20); Urine RBC <5 /HPF (NONE SEEN)
[2020-11-20 08:49] LABS: Absolute Lymphocytes (CBC) 1.5 K/uL (0.7-4.9); Basophils % 0.2 % (0-1.3); Hematocrit 40.2 % (36.0-45.0); Lymphocytes % 10.7 % (15.3-44.8); MPV 8.9 fL (7.6-11.3); RBC Red Blood Cell Count 4.69 M/uL (3.86-4.86)
[2020-11-20 08:56] LABS: ALT/SGPT 19 U/L (12-78); AST/SGOT 12 U/L (15-37); Albumin 3.5 g/dL (3.4-5.0); Alkaline Phosphatase 71 U/L (45-117); BUN Blood Urea Nitrogen 13 mg/dL (7-18); Bicarbonate 26 mmol/L (21-32); Bilirubin Direct 0.1 mg/dL (0-0.2); Bilirubin Total 0.5 mg/dL (0.2-1.0); Glucose Level 104 mg/dL (74-106); Lipase 75 U/L (73-393); Potassium 3.6 mmol/L (3.5-5.1); Protein, Total 7.4 g/dL (6.4-8.2); Sodium Level 140 mmol/L (136-145)
[2020-11-20] MEDS ORDERED: ACETAMINOPHEN 500 MG TAB ONE (09:05)
[2020-11-20] MEDS ORDERED: MORPHINE 4 MG/ML SYR ONE (09:06)
[2020-11-20] MEDS ORDERED: ONDANSETRON 4 MG/2 ML VIAL ONE (09:06)
[2020-11-20] MEDS ORDERED: NA CHLORIDE 0.9% 1,000 ML ONE ×2 (09:06→10:32)
--- NOTE | 2020-11-20 09:16 | RAD REPORT ---
EXAM DESCRIPTION: CT - Abdomen Pelvis W Contrast - 11/20/2020 9:07 am CLINICAL HISTORY: dysuria;Flank pain COMPARISON: Abdomen Pelvis W Contrast dated 05/31/2018 TECHNIQUE: Biphasic, helical CT imaging of the abdomen and pelvis was performed following 100 ml non -ionic IV contrast. No oral contrast was administered. All CT scans are performed using dose optimization technique as appropriate and may include automated exposure control or mA/KV adjustment according to patient size. FINDINGS: No suspicious findings in the lung bases. The liver, spleen, and pancreas show no suspicious findings. Gallbladder and biliary tree are also wi thout suspicious finding. No hydronephrosis or obstructing calculus. There is hypoperfusion of several right sided renal pyrami ds compared with the left kidney and compared with the 2019 study. Cortical tissue remains normally p erfused. The right ureter is not dilated but shows thickening and enhancement of the right ureter. No focal mass lesion of the renal parenchyma. No obstructing or nonobstructing calculi. Urinary bladder is only partially filled. Bladder wall appears slightly thickened with shaggy margins and trace stra nding in the adjacent fat. No focal bladder wall thickening, mass or calculus seen. No adrenal abnorm alities. Uterus and ovaries show no suspicious findings. No dilated bowel loops or bowel wall thickening. Appendix is normal. No free air or pneumatosis. Trac e free fluid in the cul de sac is within physiologic limits for patient age. No hernia, mass or bulk y lymphadenopathy. No suspicious bony findings. IMPRESSION: Above detailed findings are suspicious for cystitis, right ureteritis and early right-si ded pyelonephritis.
[2020-11-20] MEDS ORDERED: MORPHINE 2 MG/ML SYR ONE (10:15)
[2020-11-20] MEDS ORDERED: CEFTRIAXONE 1000 MG/VIAL ONE (10:15)
[2020-11-20 10:32] LABS: Blood Morphology Comment NOT SEEN (NOT SEEN); Platelet Estimate ADEQ; White Blood Cell Scan OK (OK)
--- NOTE | 2020-11-20 10:33 | EDPHYS ---
Physician Documentation [facility] Name: Parris Del Rio Age: 25 yrs Sex: Female : 1995 Arrival Date: 11/20/2020 Time: 08:11 Bed 20 Private MD: ED Physician Israel العراقي HPI: 11/20 08:31 This 25 yrs old Female presents to ER via Wheelchair with complaints of Back pm1 Pain. 08:31 The patient presents with pain that is acute, with no known mechanism of injury. The pm1 symptoms are located in the right low back. Onset: The symptoms/episode began/occurred 1 week(s) ago. The pain radiates to the right inguinal area. Associated signs and symptoms: Pertinent positives: dysuria, Pertinent negatives: fever, nausea, vomiting, Diarrhea. The problem was sustained from unknown cause. Modifying factors: The patient symptoms are alleviated by nothing, the patient symptoms are aggravated by nothing. Severity of symptoms: in the emergency department the symptoms are actually worse. The patient has not recently seen a physician. Historical: - Allergies: 08:26 No Known Allergies; ss - Home Meds: 08:26 None [Active]; ss - PMHx: 08:26 Anxiety; uterine rupture \T\ 39 weeks with previous ; ss - PSHx: 08:26 None; ss - Immunization history:: Adult Immunizations unknown, Client reports receiving the 2nd dose of the Covid vaccine. - Social history:: Smoking status: Patient reports the use of cigarette tobacco products, denies chronic smoking, but will smoke occasionally. ROS: 08:31 Constitutional: Negative for fever, chills, and weight loss, Cardiovascular: Negative pm1 for chest pain, palpitations, and edema, Respiratory: Negative for shortness of breath, cough, wheezing, and pleuritic chest pain, Abdomen/GI: Negative for abdominal pain, nausea, vomiting, diarrhea, and constipation. 08:31 MS/Extremity: Negative for injury and deformity, Skin: Negative for injury, rash, and discoloration, Neuro: Negative for headache, weakness, numbness, tingling, and seizure. 08:31 Back: Positive for flank pain, on the right. 08:31 : Positive for burning with urination. 08:31 All other systems are negative. Exam: 08:31 Constitutional: This is a well developed, well nourished patient who is awake, alert, pm1 and in no acute distress. Head/Face: Normocephalic, atraumatic. 08:31 Skin: Warm, dry with normal turgor. Normal color with no rashes, no lesions, and no evidence of cellulitis. MS/ Extremity: Pulses equal, no cyanosis. Neurovascular intact. Full, normal range of motion. 08:31 Cardiovascular: Exam negative for acute changes, Rate: normal, Rhythm: regular, Pulses: no pulse deficits are appreciated. 08:31 Respiratory: Exam negative for acute changes, respiratory distress, shortness of breath. 08:31 Abdomen/GI: Inspection: abdomen appears normal, Palpation: abdomen is soft and non-tender, in all quadrants. 08:31 Back: pain, that is mild, of the right low back. 08:31 Neuro: Exam negative for acute changes, Orientation: is normal, Mentation: is normal, Motor: is normal, moves all fours, Gait: is steady, at a normal pace, without difficulty. Vital Signs: 08:24 BP 136 / 82; Pulse 120; Resp 20; Temp 101.8(O); Pulse Ox 99% on R/A; Weight 83.91 kg; ss Height 5 ft. 3 in. (160.02 cm); Pain 10/10; 10:00 BP 110 / 64; Pulse 70; Resp 16; Pulse Ox 98% ; Pain 5/10; tc5 10:10 Temp 99.4; tc5 08:24 Body Mass Index 32.77 (83.91 kg, 160.02 cm) ss MDM: 08:22 Patient medically screened. pm1 10:32 Data reviewed: vital signs. Data interpreted: Pulse oximetry: on room air is 98 %. pm1 Interpretation: normal. Counseling: I had a detailed discussion with the patient and/or guardian regarding: the historical points, exam findings, and any diagnostic results supporting the discharge/admit diagnosis, lab results, radiology results, the need for outpatient follow up, to return to the emergency department if symptoms worsen or persist or if there are any questions or concerns that arise at home. 10:42 ED course: PMPAware reviewed. pm1 11/20 08:27 Order name: Basic Metabolic Panel; Complete Time: 09:15 pm1 11/20 08:27 Order name: CBC with Diff; Complete Time: 10:43 pm1 11/20 08:27 Order name: Hepatic Function; Complete Time: 09:15 pm1 11/20 08:27 Order name: Lipase; Complete Time: 09:15 pm1 11/20 08:27 Order name: Urine Microscopic Only; Complete Time: 09:15 pm1 11/20 08:29 Order name: Urine Dipstick-Ancillary; Complete Time: 08:31 EDMS 11/20 08:27 Order name: CT Abd/Pelvis - IV Contrast Only; Complete Time: 09:28 pm1 11/20 08:30 Order name: Urine --Ancillary (enter results); Complete Time: 09:15 eb 11/20 08:46 Order name: Urine Culture EDMS 11/20 10:32 Order name: CBC Smear Scan; Complete Time: 10:43 EDMS 11/20 08:27 Order name: IV Saline Lock; Complete Time: 08:27 pm1 11/20 08:27 Order name: Labs collected and sent; Complete Time: 08:27 pm1 11/20 08:27 Order name: Urine Dipstick-Ancillary (obtain specimen); Complete Time: 08:27 pm1 11/20 08:27 Order name: Urine Test (obtain specimen); Complete Time: 08:27 pm1 Administered Medications: 08:54 Drug: Tylenol 1000 mg Route: PO; tc5 08:54 Drug: morphine 4 mg Route: IVP; Site: right antecubital; tc5 09:46 Follow up: Response: No adverse reaction tc5 08:54 Drug: Zofran (Ondansetron) 4 mg Route: IVP; Site: right antecubital; tc5 09:46 Follow up: Response: No adverse reaction; Pain is decreased tc5 08:54 Drug: NS 0.9% 1000 ml Route: IV; Rate: 1000 ml; Site: right antecubital; tc5 09:54 Drug: Rocephin (cefTRIAXone) 1 grams Route: IV; Rate: calculated rate; Site: right tc5 antecubital; 10:49 Follow up: Response: No adverse reaction tc5 09:54 Drug: morphine 2 mg Route: IVP; Site: right antecubital; tc5 10:00 Follow up: BP 110 / 64; Pulse 70 bpm; Resp 16 bpm; Pulse Ox 98% ; Pain /10 Adult; tc5 Response: No adverse reaction; Pain is decreased 10:10 Drug: NS 0.9% 1000 ml Route: IV; Rate: 1000 ml; Site: right antecubital; tc5 10:49 Follow up: IV Status: Completed infusion; IV Intake: 2000ml tc5 Disposition Summary: 11/20/20 10:33 Discharge Ordered Location: Home pm1 Problem: new pm1 Symptoms: have improved pm1 Condition: Stable pm1 Diagnosis - Pyelonephritis acute pm1 Followup: pm1 - With: Emergency Department - When: As needed - Reason: Worsening of condition Followup: pm1 - With: Private Physician - When: 2 - 3 days - Reason: Recheck today's complaints, Continuance of care, Re-evaluation by your physician Discharge Instructions: - Discharge Summary Sheet pm1 - Pyelonephritis, Adult pm1 Forms: - Medication Reconciliation Form pm1 - Thank You Letter pm1 - Antibiotic Education pm1 - Prescription Opioid Use pm1 - Work release form eb Prescriptions: - cefpodoxime 200 mg Oral Tablet - take 1 tablet by ORAL route every 12 hours for 10 days with food; 20 tablet; pm1 Refills: 0, Product Selection Permitted - acetaminophen-codeine 300-15 mg Oral tablet - take 2 tablet by ORAL route every 6 hours As needed as needed; 20 tablet; pm1 Refills: 0, Product Selection Permitted - ondansetron 4 mg Oral tablet,disintegrating - place 1 tablet by TRANSLINGUAL route every 8 hours As needed; 15 tablet; pm1 Refills: 0, Product Selection Permitted Addendum: 11/24/2020 00:01 Co-signature as Attending Physician, Israel العراقي MD I agree with the assessment and r n plan of care. Attestation: The patient's history, exam findings, diagnostics, and a summary of any interventions or procedures was reviewed in detail with Jose Liriano NP. Signatures: Dispatcher [employer] EDIsrael Azevedo MD MD rn SmirRafaela RN RN ss Marinas, Patrick, NP MANAGED [employer]ES CONSULTANT pm1 Adore Beyer RN RN tc5
--- NOTE | 2020-11-20 10:33 | ER ---
Nurse's Notes [facility] Name: Parris Del Rio Age: 25 yrs Sex: Female : 1995 Arrival Date: 11/20/2020 Time: 08:11 Bed 20 Private MD: Diagnosis: Pyelonephritis acute Presentation: 11/20 08:24 Chief complaint: Patient states: back pain with intermittent lower abd pain that began ss 1 week ago. PT believes she has a kidney infection. Coronavirus screen: Client denies travel out of the [place] in the last 14 days. Ebola Screen: Patient denies exposure to infectious person. Patient denies travel to an Ebola-affected area in the 21 days before illness onset. Initial Sepsis Screen: Does the patient meet any 2 criteria? Temp <36.0*C (96.8*F)) or > 38.3*C (100.9*F). HR > 90 bpm. Does the patient have a suspected source of infection? No. Patient's initial sepsis screen is negative. Risk Assessment: Do you want to hurt yourself or someone else? Patient reports no desire to harm self or others. Onset of symptoms was November 13, 2020. 08:24 Method Of Arrival: Wheelchair ss 08:24 Acuity: JOY 2 ss Historical: - Allergies: 08:26 No Known Allergies; ss - Home Meds: 08:26 None [Active]; ss - PMHx: 08:26 Anxiety; uterine rupture \T\ 39 weeks with previous ; ss - PSHx: 08:26 None; ss - Immunization history:: Adult Immunizations unknown, Client reports receiving the 2nd dose of the Covid vaccine. - Social history:: Smoking status: Patient reports the use of cigarette tobacco products, denies chronic smoking, but will smoke occasionally. Screenin:37 Abuse screen: Denies threats or abuse. Denies injuries from another. Nutritional tc5 screening: No deficits noted. Tuberculosis screening: No symptoms or risk factors identified. Fall Risk None identified. Assessment: 08:34 Reassessment: Patient appears in no apparent distress at this time. rt flank pain x 1 tc5 week, states this is like prior kidney infection. , AB1, LMP 2 weeks ago. denies PMH other than kidney infection. Pain: Complains of pain in right mid back. Vital Signs: 08:24 BP 136 / 82; Pulse 120; Resp 20; Temp 101.8(O); Pulse Ox 99% on R/A; Weight 83.91 kg; ss Height 5 ft. 3 in. (160.02 cm); Pain 10/10; 10:00 BP 110 / 64; Pulse 70; Resp 16; Pulse Ox 98% ; Pain 5/10; tc5 10:10 Temp 99.4; tc5 08:24 Body Mass Index 32.77 (83.91 kg, 160.02 cm) ED Course: 08:11 Patient arrived in ED. mr 08:14 Adore Beyer, NANCI is Primary Nurse. tc5 08:14 Jose Liriano NP is PHCP. pm1 08:14 Israel العراقي MD is Attending Physician. pm1 08:26 Triage completed. ss 08:26 Arm band placed on right wrist. ss 08:37 Inserted saline lock: 20 gauge in right antecubital area, using aseptic technique. tc5 Blood collected. 09:07 CT Abd/Pelvis - IV Contrast Only In Process Unspecified. EDMS 10:48 IV discontinued, intact, bleeding controlled, No redness/swelling at site. Pressure tc5 dressing applied. Administered Medications: 08:54 Drug: Tylenol 1000 mg Route: PO; tc5 08:54 Drug: morphine 4 mg Route: IVP; Site: right antecubital; tc5 09:46 Follow up: Response: No adverse reaction tc5 08:54 Drug: Zofran (Ondansetron) 4 mg Route: IVP; Site: right antecubital; tc5 09:46 Follow up: Response: No adverse reaction; Pain is decreased tc5 08:54 Drug: NS 0.9% 1000 ml Route: IV; Rate: 1000 ml; Site: right antecubital; tc5 09:54 Drug: Rocephin (cefTRIAXone) 1 grams Route: IV; Rate: calculated rate; Site: right tc5 antecubital; 10:49 Follow up: Response: No adverse reaction tc5 09:54 Drug: morphine 2 mg Route: IVP; Site: right antecubital; tc5 10:00 Follow up: BP 110 / 64; Pulse 70 bpm; Resp 16 bpm; Pulse Ox 98% ; Pain 5/10 Adult; tc5 Response: No adverse reaction; Pain is decreased 10:10 Drug: NS 0.9% 1000 ml Route: IV; Rate: 1000 ml; Site: right antecubital; tc5 10:49 Follow up: IV Status: Completed infusion; IV Intake: 2000ml tc5 Intake: 10:49 IV: 2000ml; Total: 2000ml. tc5 Outcome: 10:33 Discharge ordered by . pm1 10:50 Patient left the ED. tc5 Addendum: 11/23/2020 08:55 Addendum: Culture Results: Positive urine culture. Bacteria is resistant to, has s s intermediate sensitivity, or is not tested against prescribed antibiotics. Report given to RUDY for further evaluation and then to information engineer for follow up with patient. 09:34 Addendum: Culture Results: Phone call Attempt #1 Spoke with patient who states that she s s is feeling much better and plans to follow up with her primary care doctor. Signatures: Dispatcher [employer] EDNC Allie Hsu mr Rafaela Zapata, RN RN Jose Parks, JG HOSIERY MATER pm1 Adore Beyer RN RN tc5
[2020-11-20 11:01] VITALS: BP 110/64; O2SAT 98
[2020-11-20 11:02] VITALS: TEMP 99.4
== END 2020-11-20 10:50 | disposition home or self-care (01) ==
LOC: ER 08:09
DX: N10 Acute pyelonephritis (principal); F17.210 Nicotine dependence, cigarettes, uncomplicated
CPT/HCPCS: 96361; 87088; 85025; 87086; 80048; 36415; 81025; 82565; 80076; 87077; 87186; 83690; 74177; 96375; 96374; 99284; Q9967; J2270; J7030 ×2; J2405; 81003; 81015